=== PATIENT | female | born 1965 | race Caucasian/White ===

== ENCOUNTER → 2023-06-28 14:59 | Outpatient (BNVA) | payer BC, SELFPAY | PROVIDERS: PCP Family Medicine; Visit Provider Family Medicine | DX: M54.2 Cervicalgia (principal); G89.29 Other chronic pain; F41.1 Generalized anxiety disorder; E66.9 Obesity, unspecified; Z79.899 Other long term (current) drug therapy | CPT/HCPCS: 80053; 80061; 80307; 81003; 84439; 84443; 85025 ==

== ENCOUNTER → 2023-08-01 15:51 | Outpatient (BNVA) | payer BC, SELFPAY | PROVIDERS: PCP Family Medicine; Visit Provider Family Medicine | DX: K29.70 Gastritis, unspecified, without bleeding; Z79.899 Other long term (current) drug therapy | CPT/HCPCS: 80053; 84439; 84443; 85025 ==

== ENCOUNTER → 2024-03-31 15:47 | Outpatient (BNVA) | payer BC, MEDICAID, SELFPAY | PROVIDERS: PCP Family Medicine; Visit Provider Emergency Medicine | DX: R11.10 Vomiting, unspecified (principal) | CPT/HCPCS: 87400 ==

== ENCOUNTER 2024-04-04 06:00 | Outpatient (RCR) | payer MEDICARE, MEDICAID, SELFPAY ==
--- NOTE | 2024-04-27 11:47 | CSC.PASSE_ITS ---
[facility] [place] Information Reason for Admission: I feel guilty about past substance use, feel like I am letting family down Client also identifies needing housing. Chief Complaint: Clients identifies substance use, anxiety, and lack of stable housing as the main barriers to stability. Current Presentation: Speaks fast, appearing anxious with client swaying bath and forth, fidgety. History Past Diagnosis and Psychiatric History: Diagnoses Anxiety F41.9 Generalized anxiety disorder F41.1 Bipolar disorder F31.9 Methamphetamine use disorder, severe, in early remission F15.21 Childhood/Family History: Mom philip when client was 6 months old. She notes she felt like she was walking on eggshells to to interfamilial conflict between step father and mother. Client two siblings, one brother and one sister. Client does have continued contact with sister but does not speak to brother. Abuse/Neglect/Trauma: Verbal Abuse History Detail: Client also notes she moved in April and had to get rid of her pet, which she identifies as being very difficult. Client moved in with niece after losing housing in [place], [place] due to letting someone stay their without permission. Client noted the substance use intensified when she had moved in with her niece, causing more stress. Current Social/Environmental Situation Current Living Environment/Relationships: Client is currently living in a sober living facility at [facility]. Client endorses a positive living environment, noting she has been sober for the past 2 months. Client states the feeling of being trapped due to sharing bunkbeds with multiple people. Do you have any relationships that are supportive of your recovery? (e.g., family, friends): Yes What is your current living situation? (e.g., homeless, living with family): Yes (Living in [facility] Do you currently live where others drink alcohol and/or use: No Are you currently involved in relationships or situations that pose a threat to your safety?: No Are you currently involved in relationships or situations that could negatively affect your recovery?: No Have you ever had hobbies? How do you spend free time? (e.g., interests; activities; recreation)?: Yes (I like to go shopping, visit the tanning bed, enjoys gardening. 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 Employment/Support Comments: Client is currently on disability and draws approximately 1200 per month, 200 a month through [employer], and another 150 a month for utilities. How many days were you paid for working in the past 30 days?: 0 How much money did you receive from the following sources in the past 30 days? Employment (Net or ?take home? pay; include any ?under the table? money.): 0 Unemployment compensation: 0 Include food stamps, transportation money provided by an agency to go to and from treatment.): 0 Pensions, benefits, or Social Security (Include disability, pensions, halfway, ?s benefits, SSI, and worker?s compensation.): 1,200 Use Patient Rating Scale Use Interviewer Severity Rating Substance Use History Alcohol or Other Drug Used past 6 months Prior use? (lifetime) Route of Use Frequency (past 6 months) Duration (of use) Date of last use Alcohol Amphetamines (meth, ice, crank) yes Nasal Inssuflation 3 months prior Cocaine Heroin Opioid /Opiates (misuse or w/out prescription) Marijuana (cbd, dabs) yes Smoking several days ago Sedatives (Benzo, sleep meds) (misuse or w/out prescription) Hallucinogens Inhalants Over the Counter (Cough syrup, Diet) Nicotine (cigarettes, chew, vape) Other Relapse, Cont. Use Are you aware of your triggers to use alcohol and/or drugs: Yes Please check of any of the following which you know are triggers for you:: Difficulty with feelings, Chronic Pain and Mental Health Please Describe: Feels like chores and activities of daily living would be much easier if she had access to Methamphetamine . What do you typically do if you are triggered: Client indicates she has not successfully employed any healthy coping mechanisms. What does that look like: Client reports experiencing sobriety over the past year with only a few incidences of relapse. 7.What is the longest period of time that you have gone without using alcohol and/or other drugs: What helps you to not use drugs/alcohol, what doesn't help Readiness to Change Is your alcohol and/or other drug use affecting any of the following?: Relationships (Has strained relationship with children. ) Do you continue to use alcohol and/or other drugs despite having it affect you?: No What would help to support your recovery; recovery concerns: Housing stability, strong social supports. What are your potential barriers to your recovery: Difficulty adjusting to chronic pain. Have you received help for alcohol and/or drug problems in the past?: No How important is it for you to receive treatment for:: Drugs: Moderately Is anyone making you seek treatment or asking you to be in recovery?: No Assessment Summary Strengths, Current Resources, Barriers to Treatment: Strengths: Proud of her current stint of sobriety, proud she was able to begin going to sabianism and escape substance use. Current Resources: Local [facility]. Barriers to Treatment: Substance use, lack of community resources. Assessment Summary Dialogue: Dania is a 58 year old female whom presented to the Crisis Center for assistance with medications. Client reports a recent Inpatient NPU visit due to continued depression and anxiety. Dania does have a history of substance use, particularly methamphetamine. Client rationalizes the usage as a way to help cope with difficulties as a result of chronic pain. Client feels the Methamphetamine use allows her to help increase energy levels and accomplish tasks that the chronic pain inhibits her from doing. Client does maintain compliance with the medicat ions prescribed while in the NPU, although client expresses desire to simplify medications due to difficulty remembering to take them at the appropriate times. Client does report high efficacy with the medications and is currently maintaining sobriety for the past 3 months. She is currently residing at a sober living facility known as [facility]. Client does express desire to maintain housing stability noting her current residences contributes to her anxiety as a result of feeling confined. Client also expresses her renewed attendance with [facility] has been a large supporting factor to her current sobriety. Identified Treatment Goals Identified Treatment Goal(s): Community-based assistance, Physical health serv ices and Medication assistance Plan of Care Treatment Plan Goal:? Client will obtain psychosocial stability by obtaining housing stability and increased mental wellbeing. MICRO Objective: Client will obtain housing stability as evidenced by becoming permanently housed by June 26, 2024? Task a: Client will complete Section 8/ HUD applications. Task b: Client will create monthly budget Task c: Client will familiarize herself with [facility] food pantry. MICRO Objective 2: Client will better manage mental health symptoms as completing 6 months of sobriety Task a: Client will attend clinical assessment with [facility] services by 05/06/24 Task b: Client will utilize coping mechanisms utilizing the current safety plan Task c: Client will obtain medication planner/scheduler to assist in maintaining medication providers Task d: Client will utilize [facility] [place], as needed, in times of crisis Risks Date Date of last Risks: 04/27/24 Suicide Risk Assessment In the last 30 days have you... Little interest or pleasure in doing things: more than half the days (My shoulder has been hurting and I dont feel like doing anything) Feeling down, depressed, or hopeless: several days (A few days because I feel like I can't do anything) PHQ-2 Score: 3 Total (If greater than 3 please do full PHQ-9): Yes Trouble falling or staying asleep, or sleeping too much: nearly every day (I don't sleep well at all, 2-3 hours per night (due to shoulder injury pain)) Feeling tired or having little energy: nearly every day (Identifies lack of sleep as contributing factor) Poor appetite or overeating: more than half the days (Has gained 30 pounds since injury her shoulder.) Feeling bad about yourself - or that you are a failure or have let yourself or your family down: several days (Notes she is doing better since the NPU hospitalization) Trouble concentrating on things, such as reading the newspaper or watching television: not at all Moving or speaking so slowly that other people could have noticed. Or the opposite - being so fidgety or restless that you have been moving around a lot more than usual: more than half the days (I feel fidgety or talking fast) Thoughts that you would be better off or of hurting yourself in some way: not at all PHQ-9: Total score: 14 Have you had suicidal thoughts?: Not At All (None since NPU hospitalization) Do you ever wish you weren't alive anymore?: Not At All (She notes she didn't want to harm herself, just doesn't want to be in pain) Suicide Risk Score: 3 Patient score 3 or greater or had suicidal thoughts?: Yes Have you wished to be or not wake up?: No Have you had any thoughts of killing yourself?: No Have you been thinking about how you might do this?: No Have you had thoughts with some intent of acting on them?: No Do you have a plan? Do you intend to carry out this plan?: No Have you ever done, started to, or prepared to do anything?: Never Risk to Others Current or History of HI: Denies any homicidal thoughts, plans, intentions, or time frames Previous and/or current violence: No Previous and/or current threats (verbal/physical): No If both Yes, then complete full screening: No Other Self-Harm or Risk Taking Behaviors Other Risk Taking Behaviors:: High Risk Substance Use Protective Factors Protective Factors and Deterrents: Responsibility to family or others Final Disposition of Risk Screening Final Disposition: No Emergency response: Safety planning
== END 2024-05-01 23:59 | disposition home or self-care (01) ==
LOC: SPT 06:00
PROVIDERS: Visit Provider Family Medicine
DX: S46.812D Strain of other muscles, fascia and tendons at shoulder and upper arm level, left arm, subsequent encounter (principal); X58.XXXD Exposure to other specified factors, subsequent encounter
CPT/HCPCS: 3725F; 97161

== ENCOUNTER 2024-04-06 18:07 | Inpatient (IN) | payer MEDICARE, MEDICAID, SELFPAY ==
[2024-04-06 18:13] VITALS: BP 167/115; PULSE 113; RESP 16; TEMP 36.9; O2SAT 93; BMI 30.9
--- NOTE | 2024-04-06 18:28 | W.ED.PSYCHS ---
HPI - Psych General: Chief Complaint: Psychiatric Symptoms Stated Complaint: SI Time Seen by Provider: 04/06/24 18:12 Source: patient Mode of arrival: ambulatory Limitations: no limitations History of Present Illness: 58-year-old female who is here from a sober living house she states she has been having some depression some passing suicidal thoughts she has no specific plans patient states she just recently got [place] 2 weeks ago. She has no other complaints at this time. Associated symptoms: Reports depression Related Data Previous Rx's Medication Instructions Recorded duloxetine 30 mg capsule,delayed 30 mg PO BID #60 caps 08/01/23 release (Cymbalta) omeprazole 40 mg capsule,delayed 40 mg PO BID #56 caps 08/01/23 release aripiprazole 10 mg tablet (Abilify) 10 mg PO DAILY #30 tabs 08/28/23 hydroxyzine pamoate 100 mg capsule 100 mg PO QID PRN anxiety #240 caps 08/28/23 pregabalin 100 mg capsule (Lyrica) 100 mg PO BID #60 caps 08/28/23 wisjmveykwjjqzg-nqpbkjfsxkehkyt-EV 5 ml PO Q6H PRN cold symptoms #118 03/31/24 2 mg-30 mg-10 mg/5 mL oral syrup mL (Bromfed DM) ondansetron 4 mg disintegrating 4 mg PO Q6H PRN nausea and 03/31/24 tablet vomiting #12 tabs oseltamivir 75 mg capsule (Tamiflu) 75 mg PO BID 5 days #10 caps 03/31/24 clonazepam 0.5 mg tablet (Klonopin) 0.5 mg PO TID 30 days #90 tabs 04/03/24 gabapentin 800 mg tablet 800 mg PO TID #270 tabs 04/03/24 tramadol 50 mg tablet 50 mg PO Q8H PRN neck pain 30 days 04/03/24 #90 tabs Allergies Allergy/AdvReac Type Severity Reaction Status Date / Time No Known Allergies Allergy Unverified 03/31/24 15:23 Review of Systems Const: Denies: fever(s), chills, body aches or change in appetite ENMT: Denies: throat pain or dental pain Card: Denies: chest pain Resp: Denies: dyspnea GI: Denies: abdominal pain, nausea, vomiting or diarrhea Musc: Denies: neck pain or back pain Skin/Breast: Denies: rash Neuro: Denies: headache(s) Psych: Reports: depression PFSH ED PFSH: Medical History Tobacco use disorder Hx MRSA infection Bipolar disorder Chronic neck pain Insomnia Generalized anxiety disorder Anxiety Surgical History H/O neck surgery History of bladder surgery History of partial hysterectomy Family History Mother Colon cancer Hypertension Social History Smoking and tobacco/nicotine status: never used tobacco/nicotine Alcohol intake: never Substance/Drug Use: never Adopted: No service: No Current occupational exposures/hazards: No Current gender identity: Female Physical Exam Const: COMMON NORMALS: no acute distress, patient oriented x3 and healthy appearing HENMT: COMMON NORMALS: normocephalic and atraumatic HEAD & SCALP: normocephalic and atraumatic Eye: COMMON NORMALS: Equal, round and reactive pupils present and EOMs intact bilaterally PUPIL: Yes Equal, round and reactive pupils present Neck/C-Spine: COMMON NORMALS: full ROM and supple Chest: COMMONS NORMALS: normal inspection of the chest and normal palpation of entire chest wall Resp: COMMON NORMALS: normal respiratory effort, No retractions, No use of accessory muscles and clear to auscultation bilaterally AUSCULTATION: clear to auscultation bilaterally Cardio: COMMON NORMALS: regular rate, regular rhythm and No murmurs present (Cardio) RATE: regular rate RHYTHM: regular rhythm Extremity: COMMON NORMALS: normal to inspection and full ROM Neuro: COMMON NORMALS: patient oriented x3, moves all extremities and no focal motor deficits Psych: COMMON NORMALS: mental status grossly normal, Normal thought process present and cooperative MOOD & AFFECT: Yes depressed mood THOUGHT PROCESS: Normal thought process present Skin: COMMON NORMALS: no rashes or lesions noted and no wounds GENERAL SKIN EXAM: no rashes or lesions noted Course Vital Signs: Vital signs: Vital Signs Temperature 98.5 F 04/06/24 18:13 Pulse Rate 113 H 04/06/24 18:13 Respiratory Rate 16 04/06/24 18:13 Blood Pressure 167/115 04/06/24 18:13 Pulse Oximetry 93 04/06/24 18:13 Oxygen Delivery Me thod Room Air 04/06/24 18:13 MDM - Psych Medical Decision Making Patient presents here with depression she has had some passing suicidal thoughts no specific plan she is medically cleared I spoke to psychiatrist will admit. Medical Records I reviewed the patient's medical records. Lab Data I reviewed the patient's lab results. 04/06/24 18:50 04/06/24 18:50 Laboratory Results WBC 7.15 10^3/uL (3.29-11.43) 04/06/24 18:50 RBC 4.38 10^6/uL (3.85-5.65) 04/06/24 18:50 Hgb 12.80 g/dL (11.27-16.99) 04/06/24 18:50 Hct 38.8 % (36-47) 04/06/24 18:50 MCV 88.6 fl (85-98) 04/06/24 18:50 MCH 29.2 pg (27-33) 04/06/24 18:50 MCHC 33.0 g/dL (30-55) 04/06/24 18:50 RDW 14.6 % (12.1-15.1) 04/06/24 18:50 Plt Count 271 10^3/cmm (157-399) 04/06/24 18:50 MPV 8.9 fL (7.4-10.4) 04/06/24 18:50 Neut % (Auto) 69.1 % 04/06/24 18:50 Lymph % (Auto) 21.4 % 04/06/24 18:50 [place] % (Auto) 6.9 % 04/06/24 18:50 Eos % (Auto) 1.7 % 04/06/24 18:50 Baso % (Auto) 0.3 % 04/06/24 18:50 Neut # (Auto) 4.95 10^3/uL (1.8-7.7) 04/06/24 18:50 Lymph # (Auto) 1.5 10^3/uL (0.8-4.8) 04/06/24 18:50 [place] # (Auto) 0.5 10^3/uL (0.2-0.9) 04/06/24 18:50 Eos # (Auto) 0.1 10^3/uL (0.0-0.8) 04/06/24 18:50 Baso # (Auto) 0.0 10^3/uL (0.0-0.1) 04/06/24 18:50 Nucleated RBC % (auto) 0 % 04/06/24 18:50 Nucleated RBCs # 0.0 /100WBC 04/06/24 18:50 Sodium 135 mmol/L (136-145) L 04/06/24 18:50 Potassium 4.0 mmol/L (3.5-5.1) 04/06/24 18:50 Chloride 100 mmol/L (98-107) 04/06/24 18:50 Carbon Dioxide 24 mmol/L (22-29) 04/06/24 18:50 Anion Gap 15.0 (5-19) 04/06/24 18:50 BUN 20 mg/dL (8-23) 04/06/24 18:50 Creatinine 0.7 mg/dL (0.5-0.9) 04/06/24 18:50 GFR Calculation 85.4 mL/min (90-130) L 04/06/24 18:50 Glucose 166 mg/dL (65-115) H 04/06/24 18:50 Calculated Osmolality 286 mOsm/kg (285-295) 04/06/24 18:50 Calcium 9.1 mg/dL (8.5-10.5) 04/06/24 18:50 Total Bilirubin 0.2 mg/dL (0.15-1.2) 04/06/24 18:50 AST 11 U/L (0-32) 04/06/24 18:50 ALT 12 U/L (0-33) 04/06/24 18:50 Alkaline Phosphatase 58 U/L (35-105) 04/06/24 18:50 Total Protein 7.2 g/dL (6.6-8.7) 04/06/24 18:50 Albumin 4.2 g/dL (3.5-5.2) 04/06/24 18:50 Globulin 3.0 g/dL (1.3-4.6) 04/06/24 18:50 Salicylates < 0.3 mg/dL (3-10) L 04/06/24 18:50 Urine Opiates Screen Negative ng/mL (Negative) 04/06/24 18:59 Acetaminophen < 5.0 ug/mL (10-30) L 04/06/24 18:50 Ur Barbiturates Screen Negative ng/mL (Negative) 04/06/24 18:59 Ur Phencyclidine Scrn Negative ng/mL (Negative) 04/06/24 18:59 Ur Amphetamines Screen Negative ng/mL (Negative) 04/06/24 18:59 U Benzodiazepines Scrn Negative ng/mL (Negative) 04/06/24 18:59 Urine Cocaine Screen Negative ng/mL (Negative) 04/06/24 18:59 U Marijuana (THC) Screen Positive ng/mL (Negative) H 04/06/24 18:59 Ethyl Alcohol < 10 mg/dL (0-10) 04/06/24 18:50 No radiology studies performed this visit Discharge Plan Discharge Condition: Stable Prescriptions: No Action duloxetine [Cymbalta] 30 mg capsule,delayed release(DR/EC) 30 mg PO BID Qty: 60 1RF omeprazole 40 mg capsule,delayed release(DR/EC) 40 mg PO BID Qty: 56 0RF aripiprazole [Abilify] 10 mg tablet 10 mg PO DAILY Qty: 30 0RF pregabalin [Lyrica] 100 mg capsule 100 mg PO BID Qty: 60 0RF hydroxyzine pamoate 100 mg capsule 100 mg PO QID PRN (Reason: anxiety) Qty: 240 2RF foeqhuaahnqrvch-pqebvgbsl-MA [Bromfed DM] 2-30-10 mg/5 mL syrup 5 ml PO Q6H PRN (Reason: cold symptoms) Qty: 118 0RF ondansetron 4 mg tablet,disintegrating 4 mg PO Q6H PRN (Reason: nausea and vomiting) Qty: 12 0RF Rx Instructions: 340b please oseltamivir [Tamiflu] 75 mg capsule 75 mg PO BID 5 Days Qty: 10 0RF tramadol 50 mg tablet 50 mg PO Q8H PRN (Reason: neck pain) 30 Days Qty: 90 0RF gabapentin 800 mg tablet 800 mg PO TID Qty: 270 1RF clonazepam [Klonopin] 0.5 mg tablet 0.5 mg PO TID 30 Days Qty: 90 0RF Referrals: Vaisler,Valentin, MD [Primary Care Provider] - Coding Level of Care Code ED Computer Methods Analyst for Danielle Barrett
[2024-04-06 18:58] LABS: Basophils % 0.3 %; Eosinophils # 0.1 10^3/uL (0.0-0.8); Eosinophils % 1.7 %; Hematocrit 38.8 % (36-47); Lymphocytes # 1.5 10^3/uL (0.8-4.8); Lymphocytes % 21.4 %; Mean Corpuscular Hemoglobin 29.2 pg (27-33); Mean Corpuscular Volume 88.6 fl (85-98); Mean Platelet Volume 8.9 fL (7.4-10.4); Monocytes # 0.5 10^3/uL (0.2-0.9); Monocytes % 6.9 %; Neutrophils # 4.95 10^3/uL (1.8-7.7); Neutrophils % 69.1 %; Nucleated Red Blood Cells % 0 %; Platelet Count 271 10^3/cmm (157-399); Red Blood Count 4.38 10^6/uL (3.85-5.65); Red Cell Distribution Width 14.6 % (12.1-15.1); White Blood Count 7.15 10^3/uL (3.29-11.43)
[2024-04-06] MEDS: LORazepam 1 mg Tablet PO (19:13)
[2024-04-06 19:16] LABS: Alanine Aminotransferase 12 U/L (0-33); Albumin Level 4.2 g/dL (3.5-5.2); Alkaline Phosphatase 58 U/L (35-105); Aspartate Amino Transferase 11 U/L (0-32); Blood Urea Nitrogen 20 mg/dL (8-23); Calcium 9.1 mg/dL (8.5-10.5); Carbon Dioxide 24 mmol/L (22-29); Chloride 100 mmol/L (98-107); Creatinine Clr Calc Pharmacy 88.3444; Glomerular Filtration Rate 85.4 mL/min (90-130); Glucose 166 mg/dL (65-115); Osmolality Calculated 286 mOsm/kg (285-295); Salicylate < 0.3 mg/dL (3-10); Sodium 135 mmol/L (136-145); Total Bilirubin 0.2 mg/dL (0.15-1.2); Total Protein 7.2 g/dL (6.6-8.7)
[2024-04-06 19:17] LABS: Acetaminophen < 5.0 ug/mL (10-30); Alcohol Level < 10 mg/dL (0-10)
[2024-04-06 19:23] LABS: Amphetamines Screen Urine Negative (Negative); Barbiturates Screen Urine Negative (Negative); Benzodiazepines Screen Urine Negative (Negative); Cocaine Screen Urine Negative (Negative); Opiate Screen Urine Negative (Negative); PCP Screen Urine Negative (Negative); THC Screen Urine Positive (Negative)
[2024-04-06 20:39] VITALS: BP 122/86; PULSE 91; RESP 16; O2SAT 98
[2024-04-06 20:49] VITALS: BP 152/89; PULSE 101; RESP 18; TEMP 37.2; O2SAT 97
[2024-04-06 21:08] VITALS: BP 152/89; PULSE 101; RESP 18; TEMP 37.2; O2SAT 97
[2024-04-06] MEDS: acetaminophen 325 mg Tablet 650 MG PO (23:01)
[2024-04-06] MEDS: trazodone 50 mg Tablet PO (23:03)
[2024-04-07 06:00] VITALS: BP 115/70; PULSE 96; RESP 18; TEMP 36.6; O2SAT 95
[2024-04-07] MEDS: nicotine 21 mg Patch 1 PATCH TRANSDERMA (09:20)
[2024-04-07] MEDS: ondansetron 4 MG Tablet PO (09:22)
[2024-04-07] MEDS: acetaminophen 325 mg Tablet 650 MG PO ×2 (09:22→16:29)
[2024-04-07] MEDS: TRAMadol 50 mg Tablet PO ×2 (13:20→20:11)
[2024-04-07 14:00] VITALS: BP 123/83; PULSE 84; RESP 18; TEMP 37.2; O2SAT 97
[2024-04-07] MEDS: gabapentin 300 mg Capsule 600 MG PO ×2 (14:23→20:09)
[2024-04-07] MEDS: CLONazepam 0.5 mg Tablet PO ×2 (14:23→20:09)
--- NOTE | 2024-04-07 16:18 | P.NPUHP_ITS ---
Providers/Chief Complaint 2 Admitting Physician: Kale Antoine MD Primary Care Provider: Valentin Vargas MD Chief Complaint: SI HPI NPU History of Present Illness Dania Madrigal is a 58 year old female who presented to the emergency department with the following report: Chief Complaint: Psychiatric Symptoms Stated Complaint: SI Time Seen by Provider: 04/06/24 18:12 Source: patient Mode of arrival: ambulatory Limitations: no limitations History of Present Illness: 58-year-old female who is here from a sober living house she states she has been having some depression some passing suicidal thoughts she has no specific plans patient states she just recently got [place] 2 weeks ago. She has no other complaints at this time. Associated symptoms: Reports depression. She was admitted to the neuropsychiatric unit for definitive treatment of those issues. She is unknown to [facility] through inpatient or outpatient services but reports just being discharged from [place] recently and sent to a sober living facility in [facility] but that she is struggling there and presented to the emergency department reporting that she was having a tough time. She presents today reporting: Chief complaint Overwhelming pain and recent struggles with depression and anxiety. History of the present complaint The patient reports experiencing significant pain, which has become overwhelming and led to a recent hospital visit. The pain is associated with a past incident where the patient was washing the carpet on the basement stairs, potentially causing an injury to the arm. The patient has a history of a bulging disc removal and esophageal surgery, along with past experiences of sepsis and MRSA, which occurred in 2008. The current pain is described as being on the opposite side of the previous surgery and is exacerbated by physical activities. The patient has been struggling over the past year, particularly after losing their home when the patient's brother sold it. This event has contributed to a sense of loss and the need to find oneself again. The patient has a history of being in a psychiatric hospital, with the most recent stay being about 10 days ago. After leaving the hospital, the patient was sent to a sober living home, which was not suitable due to physical challenges related to arthritis in the knees and difficulties with the bed arrangements. The patient has a history of substance use, specifically methamphetamine and marijuana, which was shared with a niece. The patient reports quitting these substances about six months ago and has not been struggling with them since. The patient was placed in a sober living house as an option, but the physical setup was not conducive to their needs. The patient has been experiencing depression and anxiety, with a doctor in [place] prescribing 1 mg of clonazepam, which the patient found effective. The patient is currently on a lower dose of 0.25 mg and is considering an increase. The patient was also prescribed Latuda, with a refill given around the beginning of November, but reports that it was not effective and led to increased appetite and nighttime eating. The patient has been dealing with these mental health challenges more recently, particularly after their son went to the [employer] and their daughter moved with her for work, leaving the patient feeling lost and without purpose. The patient denies having issues with trauma, nightmares, flashbacks, or hearing voices. There are no current thoughts of self-harm or harm to others, and the patient does not feel paranoid or that people are out to get them. The patient reports having a fairly good mood since resuming medication. The patient has limited family support, with a sister being the primary contact, and mentions the passing of their mother about a year ago. Mental health history Has a history of depression and anxiety. Recently discharged from a psychiatric hospital about 10 days ago. Previously struggled with methamphetamine and cannabis use, which was ceased approximately six months ago. Was prescribed 1 mg of clonazepam by a doctor in [place], which was effective, and is currently on 0.25 mg. Also prescribed Latuda, but it was not effective and led to increased appetite. No current thoughts of self-harm or harm to others. No history of trauma, nightmares, flashbacks, or paranoia. No auditory or visual hallucinations reported. Social history Lost home due to brother selling it, previously lived in a nice neighborhood with a 5-bedroom home. Son is in the [employer], currently stationed in [place]. Daughter's works for [employer] in [place]. 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 Has a sister with whom there is communication, but no other family support mentioned. Mother approximately a year ago. Previously used meth and weed with niece, quit about six months ago. No current alcohol or tobacco use mentioned. Struggles with arthritis in knees, affecting mobility. Meds NPU Home Medications ?Medication ?Instructions ?Recorded ?Confirmed ?Last Taken ?Type duloxetine 30 mg capsule,delayed 30 mg PO BID #60 caps 08/01/23 03/31/24 Unknown Rx release (Cymbalta) omeprazole 40 mg capsule,delayed 40 mg PO BID #56 caps 08/01/23 03/31/24 Unknown Rx release aripiprazole 10 mg tablet (Abilify) 10 mg PO DAILY #30 tabs 08/28/23 03/31/24 Unknown Rx hydroxyzine pamoate 100 mg capsule 100 mg PO QID PRN a nxiety #240 caps 08/28/23 03/31/24 Unknown Rx pregabalin 100 mg capsule (Lyrica) 100 mg PO BID #60 c aps 08/28/23 03/31/24 Unknown Rx kgjdcxngifevdys-topjtlwyrbihide-IK 5 ml PO Q6H PRN col d symptoms #118 03/31/24 03/31/24 Unknown Rx 2 mg-30 mg-10 mg/5 mL oral syrup mL (Bromfed DM) ondansetron 4 mg disintegrating 4 mg PO Q6H PRN nausea and 03/31/24 03/31/24 Unknown Rx tablet vomiting #12 tabs oseltamivir 75 mg capsule (Tamiflu) 75 mg PO BID 5 day s #10 caps 03/31/24 03/31/24 Unknown Rx clonazepam 0.5 mg tablet (Klonopin) 0.5 mg PO TID 30 d ays #90 tabs 04/03/24 Unknown Rx gabapentin 800 mg tablet 800 mg PO TID #270 tabs 03/06 03/28 Unknown Rx tramadol 50 mg tablet 50 mg PO Q8H PRN neck pain 3 0 days 04/03/24 Unknown Rx #90 tabs duloxetine 30 mg capsule,delayed mg PO 04/06/24 Unknown History release clonazepam 0.5 mg tablet 0.5 mg PO TID 04/07/2404/07 Unknown History tramadol 50 mg tablet 50 mg PO Q8H PRN Pain, Sever e 04/07/24 04/07/24 Unknown History Allergies Allergy/AdvReac Type Severity Reaction Status Date / Time No Known Allergies Allergy Unverified 03/31/24 15:23 PFSH NPU 2 PFSH: Medical History Tobacco use disorder Hx MRSA infection Bipolar disorder Chronic neck pain Insomnia Generalized anxiety disorder Anxiety Surgical History H/O neck surgery History of bladder surgery History of partial hysterectomy Family History Mother Colon cancer Hypertension Social History Smoking and tobacco/nicotine status: never used tobacco/nicotine Alcohol intake: never Substance/Drug Use: never Adopted: No service: No Current occupational exposures/hazards: No Current gender identity: Female Mental Status Exam 2 MSE Comments: This is an obese, white female, looking older than her stated age in hospital scrubs, with adequate grooming and eye contact. No abnormal movements except for mild psychomotor agitation. Cooperative with exam in mild distress. Speech was increased rate and normal volume. Mood described as depressed and anxious; affect congruent . Thought process, organized. Thought content: patient denied any suicidal or homicidal ideation, there were no delusions reported or noted, patient denied any auditory or visual hallucinations. No current thoughts to hurt or kill self or others. Patient has been struggling with anxiety and depression recently. Reports increased appetite and getting up to eat all night long, possibly due to medication. Stressors include loss of home, family members moving away, and physical pain. Mood has been fairly good since getting back on medication. Attention, concentration, and memory appeared intact, but none were formally tested. Alert and oriented times three. Insight and judgment are limited. Impulse control is limited. Vitals/I&O/Wt Last Vital Signs Temp 98.9 F 04/07/24 14:00 Pulse 84 04/07/24 14:00 Resp 18 04/07/24 14:00 BP 123/83 04/07/24 14:00 Pulse Ox 97 04/07/24 14:00 O2 Del Method Room Air 04/07/24 14:00 Weight last 48 hrs Weight 81.647 kg Data NPU 04/06/24 18:50 04/06/24 18:50 A&P Assessment and plan (1) Anxiety: (2) Generalized anxiety disorder: (3) Bipolar disorder: (4) Methamphetamine use disorder, severe, in early remission: Plan This is a 58-year-old female, who presents a couple weeks after her last inpatient hospitalization reporting that she is not doing well at the facility she was discharged to, who is here on a 96-hour hold. Depression and anxiety are present, with recent exacerbation due to life changes and stressors. There is a history of substance use, specifically methamphetamine and cannabis, which the patient reports having quit approximately six months ago. The patient has been on medication management, including clonazepam and Latuda, with some challenges in efficacy and side effects. No current suicidal ideation or homicidal ideation is reported. There is no evidence of psychosis, such as hallucinations or paranoia. The patient has a limited support system, with some family contact. 1. Continue current medication. Will consider making some medication changes 2. Encourage individual, group, and milieu therapy. 3. Continue q-15-minute checks for safety. 4. Recommend sober living treatment at the highest level of care to which the patient is willing to commit. 5. Get collateral information from significant others in outpatient team PDMP PDMP Reviewed: Not Reviewed Involuntary Hold Information 2 96 Hour Hold: 96 Hour Involuntary Admission: No Attestations NPU 2 Medical Necessity Statement*: Inpatient hospitalization is medically necessary and the clinically appropriate intervention, at this time. We will monitor medications and make changes as indicated. Patient will be in the hospital for over two midnights. Likely length of stay is three to five days. Coding Level of Care Code Acute Code for [facility] Fw Diagnoses Anxiety F41.9 Generalized anxiety disorder F41.1 Bipolar disorder F31.9 Methamphetamine use disorder, severe, in early remission F15.21
[2024-04-07] MEDS: promethazine 25 mg Tablet 12.5 MG PO (16:30)
[2024-04-07] MEDS: mirtazapine 30 mg Tablet PO (20:09)
[2024-04-07 20:21] VITALS: BP 113/78; PULSE 90; RESP 20; TEMP 36.8; O2SAT 98
[2024-04-08] MEDS: acetaminophen 325 mg Tablet 650 MG PO ×3 (01:45→19:43)
[2024-04-08 06:00] VITALS: BP 122/83; PULSE 89; RESP 14; TEMP 36.8; O2SAT 98
[2024-04-08] MEDS: CLONazepam 0.5 mg Tablet PO ×3 (09:01→20:39)
[2024-04-08] MEDS: gabapentin 300 mg Capsule 600 MG PO ×3 (09:02→20:39)
[2024-04-08] MEDS: promethazine 25 mg Tablet 12.5 MG PO ×2 (09:11→20:44)
[2024-04-08] MEDS: nicotine 21 mg Patch 1 PATCH TRANSDERMA (09:11)
[2024-04-08] MEDS: TRAMadol 50 mg Tablet PO ×3 (09:17→21:59)
[2024-04-08 14:00] VITALS: BP 125/82; PULSE 89; RESP 16; TEMP 37.2; O2SAT 97
[2024-04-08] MEDS: fluoxetine 20 mg Capsule PO (17:34)
[2024-04-08] MEDS: lamoTRIgine 25 mg Tablet PO (17:34)
--- NOTE | 2024-04-08 17:34 | P.NPUPN_ITS ---
Subjective NPU 2 Subjective: Patient presented today reporting that things were going okay. She reported that she had not really been on some basic antidepressants in the past and we discussed the risks, benefits and alternatives of initiating Prozac 20 mg p.o. daily as well as discussing mood stabilization and Lamictal starting at 25 mg p.o. daily and discussing the risk for Olson-Rohan syndrome and she understood and agreed to proceed as is documented in this note. She denied any side effects to her medications. Mental Status Exam 2 MSE Comments: This is an obese, white female, looking older than her stated age in hospital scrubs, with adequate grooming and eye contact. No abnormal movements except for mild psychomotor agitation. Cooperative with exam in mild distress. Speech was increased rate and normal volume. Mood described as depressed and anxious; affect congruent . Thought process, organized. Thought content: patient denied any suicidal or homicidal ideation, there were no delusions reported or noted, patient denied any auditory or visual hallucinations. No current thoughts to hurt or kill self or others. Patient has been struggling with anxiety and depression recently. Reports increased appetite and getting up to eat all night long, possibly due to medication. Stressors include loss of home, family members moving away, and physical pain. Mood has been fairly good since getting back on medication. Attention, concentration, and memory appeared intact, but none were formally tested. Alert and oriented times three. Insight and judgment are limited. Impulse control is limited. Vitals/I&O/Wt Last Vital Signs Temp 98.9 F 04/08/24 14:00 Pulse 89 04/08/24 14:00 Resp 16 04/08/24 14:00 BP 125/82 04/08/24 14:00 Pulse Ox 97 04/08/24 14:00 O2 Del Method Room Air 04/08/24 14:00 Data NPU 04/06/24 18:50 04/06/24 18:50 A&P Assessment and plan (1) Anxiety: (2) Generalized anxiety disorder: (3) Bipolar disorder: (4) Methamphetamine use disorder, severe, in early remission: Plan This is a 58-year-old female, who presents a couple weeks after her last inpatient hospitalization reporting that she is not doing well at the facility she was discharged to, who is here on a 96-hour hold. Depression and anxiety are present, with recent exacerbation due to life changes and stressors. There is a history of substance use, specifically methamphetamine and cannabis, which the patient reports having quit approximately six months ago. The patient has been on medication management, including clonazepam and Latuda, with some challenges in efficacy and side effects. No current suicidal ideation or homicidal ideation is reported. There is no evidence of psychosis, such as hallucinations or paranoia. The patient has a limited support system, with some family contact. 1. Continue current medication. Will consider making some medication changes. Initiate Prozac 20 mg p.o. daily and Lamictal 25 mg p.o. daily and titrate to effect. 2. Encourage individual, group, and milieu therapy. 3. Continue q-15-minute checks for safety. 4. Recommend sober living treatment at the highest level of care to which the patient is willing to commit. 5. Get collateral information from significant others in outpatient team PDMP PDMP Reviewed: Not Reviewed Involuntary Hold Information 2 96 Hour Hold: 96 Hour Involuntary Admission: No Attestations NPU 2 Medical Necessity Statement*: Inpatient hospitalization is medically necessary and the clinically appropriate intervention, at this time. We will monitor medications and make changes as indicated. Likely length of stay is 2-4 days. Coding Level of Care Code Acute Code for [facility] Fwd Diagnoses Anxiety F41.9 Generalized anxiety disorder F41.1 Bipolar disorder F31.9 Methamphetamine use disorder, severe, in early remission F15.21
--- NOTE | 2024-04-08 17:40 | PC.NURSE ---
NEW ORDERS RECEIVED FROM DR. PEÑA TO START LAMICTAL 25MG PO DAILY AND PROZAC 20 MG PO DAILY WITH FIRST DOSES TO BE GIVEN NOW AND THEN DAILY. ORDERS PLACED AND PT EDUCATED ON ORDERS, VERBALIZED UNDERSTANDING.
[2024-04-08 20:32] VITALS: BP 148/90; PULSE 102; RESP 17; TEMP 36.4; O2SAT 97
[2024-04-08] MEDS: mirtazapine 30 mg Tablet PO (20:39)
[2024-04-09] MEDS: acetaminophen 325 mg Tablet 650 MG PO (03:51)
[2024-04-09 06:00] VITALS: BP 148/88; PULSE 109; RESP 18; O2SAT 96
[2024-04-09] MEDS: CLONazepam 0.5 mg Tablet PO ×2 (08:35→14:42)
[2024-04-09] MEDS: TRAMadol 50 mg Tablet PO ×2 (08:52→16:48)
[2024-04-09] MEDS: fluoxetine 20 mg Capsule PO (08:52)
[2024-04-09] MEDS: lamoTRIgine 25 mg Tablet PO (08:53)
[2024-04-09] MEDS: nicotine 21 mg Patch 1 PATCH TRANSDERMA (08:53)
[2024-04-09] MEDS: promethazine 25 mg Tablet 12.5 MG PO (08:53)
[2024-04-09] MEDS: gabapentin 300 mg Capsule 600 MG PO ×2 (08:53→14:43)
[2024-04-09 14:00] VITALS: BP 139/97; PULSE 87; RESP 16; TEMP 36.8; O2SAT 97
[2024-04-09] MEDS: ibuprofen 600 mg Tablet PO (14:42)
--- NOTE | 2024-04-09 14:45 | DCPLANNER ---
Imm was given to pt and rights explained and copy placed in file.
--- NOTE | 2024-04-09 16:22 | P.NPUDS_ITS ---
Diagnoses at Discharge Discharge Diagnosis (1) Anxiety: Status: Acute (2) Generalized anxiety disorder: Status: Acute (3) Bipolar disorder: Status: Acute (4) Methamphetamine use disorder, severe, in early remission: Status: Acute Reason for Visit Reason for Visit: SI Involuntary Hold Information 96 Hour Hold: 96 Hour Involuntary Admission: No Mental Status Exam 2 MSE Comments: This is an obese, white female, looking older than her stated age in hospital scrubs, with adequate grooming and eye contact. No abnormal movements except for mild psychomotor agitation. Cooperative with exam in mild distress. Speech was increased rate and normal volume. Mood described as depressed and anxious; affect congruent . Thought process, organized. Thought content: patient denied any suicidal or homicidal ideation, there were no delusions reported or noted, patient denied any auditory or visual hallucinations. No current thoughts to hurt or kill self or others. Patient has been struggling with anxiety and depression recently. Reports increased appetite and getting up to eat all night long, possibly due to medication. Stressors include loss of home, family members moving away, and physical pain. Mood has been fairly good since getting back on medication. Attention, concentration, and memory appeared intact, but none were formally tested. Alert and oriented times three. Insight and judgment are limited. Impulse control is limited. Discharge Data Studies Completed and Pending: Laboratory Results WBC 7.15 10^3/uL (3.2 9-11.43) 04/06/24 18:50 RBC 4.38 10^6/uL (3.8 5-5.65) 04/06/24 18:50 Hgb 12.80 g/dL (11.27 -16.99) 04/06/24 18:50 Hct 38.8 % (36-47) 04/06/24 18:50 MCV 88.6 fl (85-98) 04/06/24 18:50 MCH 29.2 pg (27-33) 04/06/24 18:50 MCHC 33.0 g/dL (30-55) 04/06/24 18:50 RDW 14.6 % (12.1-15.1 ) 04/06/24 18:50 Plt Count 271 10^3/cmm (157 -399) 04/06/24 18:50 MPV 8.9 fL (7.4-10.4) 04/06/24 18:50 Neut % (Auto) 69.1 % 04/06/24 18:50 Lymph % (Auto) 21.4 % 04/06/24 18:50 [facility] % (Auto) 6.9 % 04/06/24 18:50 Eos % (Auto) 1.7 % 04/06/24 18:50 Baso % (Auto) 0.3 % 04/06/24 18:50 Neut # (Auto) 4.95 10^3/uL (1.8 -7.7) 04/06/24 18:50 Lymph # (Auto) 1.5 10^3/uL (0.8- 4.8) 04/06/24 18:50 [facility] # (Auto) 0.5 10^3/uL (0.2- 0.9) 04/06/24 18:50 Eos # (Auto) 0.1 10^3/uL (0.0- 0.8) 04/06/24 18:50 Baso # (Auto) 0.0 10^3/uL (0.0- 0.1) 04/06/24 18:50 Nucleated RBC % (a uto) 0 % 04/06/24 18:50 Nucleated RBCs # 0.0 /100WBC 04/06/24 18:50 Sodium 135 mmol/L (136-1 45) L 04/06/24 18:50 Potassium 4.0 mmol/L (3.5-5 .1) 04/06/24 18:50 Chloride 100 mmol/L (98-10 7) 04/06/24 18:50 Carbon Dioxide 24 mmol/L (22-29) 04/06/24 18:50 Anion Gap 15.0 (5-19) 04/06/24 18:50 BUN 20 mg/dL (8-23) 04/06/24 18:50 Creatinine 0.7 mg/dL (0.5-0. 9) 04/06/24 18:50 GFR Calculation 85.4 mL/min (90-1 30) L 04/06/24 18:50 Glucose 166 mg/dL (65-115 ) H 04/06/24 18:50 Calculated Osmolal ity 286 mOsm/kg (285- 295) 04/06/24 18:50 Calcium 9.1 mg/dL (8.5-10 .5) 04/06/24 18:50 Total Bilirubin 0.2 mg/dL (0.15-1 .2) 04/06/24 18:50 AST 11 U/L (0-32) 04/06/24 18:50 ALT 12 U/L (0-33) 04/06/24 18:50 Alkaline Phosphata se 58 U/L (35-105) 04/06/24 18:50 Total Protein 7.2 g/dL (6.6-8.7 ) 04/06/24 18:50 Albumin 4.2 g/dL (3.5-5.2 ) 04/06/24 18:50 Globulin 3.0 g/dL (1.3-4.6 ) 04/06/24 18:50 Salicylates < 0.3 mg/dL (3-10 ) L 04/06/24 18:50 Urine Opiates Scre en Negative ng/mL (N egative) 04/06/24 18:59 Acetaminophen < 5.0 ug/mL (10-3 0) L 04/06/24 18:50 Ur Barbiturates Sc reen Negative ng/mL (N egative) 04/06/24 18:59 Ur Phencyclidine S crn Negative ng/mL (N egative) 04/06/24 18:59 Ur Amphetamines Sc reen Negative ng/mL (N egative) 04/06/24 18:59 U Benzodiazepines Scrn Negative ng/mL (N egative) 04/06/24 18:59 Urine Cocaine Scre en Negative ng/mL (N egative) 04/06/24 18:59 U Marijuana (THC) Screen Positive ng/mL (N egative) H 04/06/24 18:59 Ethyl Alcohol < 10 mg/dL (0-10) 04/06/24 18:50 Vitals: Last Vital Signs Temp 98.3 F 04/09/24 14:00 Pulse 87 04/09/24 14:00 Resp 16 04/09/24 14:00 BP 139/97 04/09/24 14:00 Pulse Ox 97 04/09/24 14:00 O2 Del Method Room Air 04/09/24 14:00 Discharge Plan Discharge Patient Disposition: Admitted As Inpatient Condition: Stable Prescriptions: New gabapentin 600 mg tablet 600 mg PO TID 30 Days Qty: 90 1RF lamotrigine 25 mg Tablet 25 mg PO DAILY 19 Days Qty: 40 0RF Rx Instructions: 1 tab for 5 days, then 2 tabs for 1 week, then 3 tabs for 1 week then start 100 mg tablet mirtazapine 30 mg Tablet 30 mg PO BEDTIME 30 Days Qty: 30 1RF fluoxetine 20 mg Capsule 20 mg PO DAILY 30 Days Qty: 30 1RF lamotrigine [Lamictal] 100 mg tablet 100 mg PO DAILY 30 Days Qty: 30 1RF Rx Instructions: Began in 19 days after 25 mg titration complete Continued hydroxyzine pamoate 100 mg capsule 100 mg PO QID PRN (Reason: anxiety) Qty: 240 2RF Discontinued duloxetine [Cymbalta] 30 mg capsule,delayed release(DR/EC) 30 mg PO BID Qty: 60 1RF aripiprazole [Abilify] 10 mg tablet 10 mg PO DAILY Qty: 30 0RF gabapentin 800 mg tablet 800 mg PO TID Qty: 270 1RF clonazepam 0.5 mg tablet 0.5 mg PO TID No Action omeprazole 40 mg capsule,delayed release(DR/EC) 40 mg PO BID Qty: 56 0RF pregabalin [Lyrica] 100 mg capsule 100 mg PO BID Qty: 60 0RF ondansetron 4 mg tablet,disintegrating 4 mg PO Q6H PRN (Reason: nausea and vomiting) Qty: 12 0RF Rx Instructions: 340b please oseltamivir [Tamiflu] 75 mg capsule 75 mg PO BID 5 Days Qty: 10 0RF tramadol 50 mg tablet 50 mg PO Q8H PRN (Reason: neck pain) 30 Days Qty: 90 0RF Discharge Orders: Discharge Order (Routine); Ordered 04/09/24 Ordered By: Kale Antoine Referrals: [facility] [Outside] Valentin Vargas MD [Primary Care Provider] - 04/10/24 8:00 am (Follow up. ) Discharge Diet: Regular Discharge Activity: Resume usual activity Discharge Attestations NPU Time Spent in Discharge Care*: less than 30 min Specific Discharge Activities: Specific discharge activities: educating patient, discussing with case consultant/social workers/dc planners, documenting/other paperwork and evaluating patient/reviewing data Coding Level of Care Code Acute Code for [facility] Fwd Diagnoses Anxiety F41.9 Generalized anxiety disorder F41.1 Bipolar disorder F31.9 Methamphetamine use disorder, severe, in early remission F15.21
[2024-04-09 16:26] VITALS: BP 139/97; PULSE 87; RESP 16; TEMP 36.8; O2SAT 97
== END 2024-04-09 17:38 | disposition home or self-care (01) | DRG 885 ==
LOC: ER 20:17 → NP 20:40
PROVIDERS: Admitting Provider Psychiatry & Neurology Psychiatry; Emergency Provider Emergency Medicine; PCP Family Medicine; Visit Provider Psychiatry & Neurology Psychiatry
DX: F31.9 Bipolar disorder, unspecified (principal); R45.851 Suicidal ideations; F41.1 Generalized anxiety disorder; F15.21 Other stimulant dependence, in remission; Z86.14 Personal history of Methicillin resistant Staphylococcus aureus infection; G89.29 Other chronic pain; M54.2 Cervicalgia; G47.00 Insomnia, unspecified; E66.9 Obesity, unspecified; Z68.30 Body mass index [BMI] 30.0-30.9, adult
CPT/HCPCS: 36415; 80053; 80306; 80307; 85025; 97150; 97165; 99285; Q0162; Q0169

== ENCOUNTER 2024-04-10 09:01 | Outpatient (CLI) | payer MEDICARE, MEDICAID, SELFPAY ==
--- NOTE | 2024-04-10 09:05 | XR_ITS ---
WS: [id number] Left shoulder, 3 views, 04/10/2024 Clinical Data: L shoulder pain Comparison: None. Findings: No fractures or dislocations are seen. The AC joint is normal. The adjacent left clavicle, left scapula and ribs are normal. The soft tissues are unremarkable. There is a posterior cervical fusion. XR/XR shoulder LT min 2V* [id number] Impression: Negative left shoulder.
== END 2024-04-10 09:02 | disposition home or self-care (01) ==
LOC: RAD 09:03
PROVIDERS: PCP Family Medicine; Visit Provider Family Medicine
DX: S46.812A Strain of other muscles, fascia and tendons at shoulder and upper arm level, left arm, initial encounter (principal); Z98.1 Arthrodesis status; X58.XXXA Exposure to other specified factors, initial encounter
CPT/HCPCS: 73030

== ENCOUNTER 2024-05-02 06:30 | Outpatient (RCR) | payer MEDICARE, MEDICAID, SELFPAY | END 2024-06-01 23:59 | disposition home or self-care (01) | LOC: SPT 06:30 | PROVIDERS: Visit Provider Family Medicine | DX: S46.812D Strain of other muscles, fascia and tendons at shoulder and upper arm level, left arm, subsequent encounter (principal); X58.XXXD Exposure to other specified factors, subsequent encounter | CPT/HCPCS: 97110 ==

== ENCOUNTER → 2024-06-08 13:03 | Outpatient (BNVA) | payer MEDICARE, MEDICAID, SELFPAY | PROVIDERS: Family Provider Family Medicine; PCP Family Medicine; Visit Provider Orthopaedic Surgery | DX: S46.812A Strain of other muscles, fascia and tendons at shoulder and upper arm level, left arm, initial encounter (principal); X58.XXXA Exposure to other specified factors, initial encounter | CPT/HCPCS: 99204 ==

== ENCOUNTER → 2024-06-24 09:28 | Outpatient (BNVA) | payer OTHER, SELFPAY | PROVIDERS: Family Provider Family Medicine; PCP Family Medicine; Visit Provider Nurse Practitioner | DX: F31.81 Bipolar II disorder (principal); F41.1 Generalized anxiety disorder | CPT/HCPCS: 80061; 83036 ==

== ENCOUNTER 2024-07-04 21:57 | Emergency (ER) | payer MEDICARE, MEDICAID, SELFPAY ==
[2024-06-30 10:00] VITALS: BP 126/95; BMI 36.1
[2024-07-04 22:02] VITALS: BP 133/92; PULSE 89; RESP 18; TEMP 36.3; O2SAT 96; BMI 34.3
[2024-07-04 22:40] LABS: Basophils % 0.5 %; Eosinophils # 0.1 10^3/uL (0.0-0.8); Eosinophils % 1.5 %; Hematocrit 38.7 % (36-47); Lymphocytes # 2.2 10^3/uL (0.8-4.8); Lymphocytes % 38.1 %; Mean Corpuscular HGB Conc 33.6 g/dL (30-55); Mean Corpuscular Hemoglobin 29.7 pg (27-33); Mean Corpuscular Volume 88.6 fl (85-98); Mean Platelet Volume 9.9 fL (7.4-10.4); Monocytes # 0.4 10^3/uL (0.2-0.9); Monocytes % 7.5 %; Neutrophils # 3.05 10^3/uL (1.8-7.7); Neutrophils % 52.2 %; Nucleated Red Blood Cells % 0 %; Platelet Count 223 10^3/cmm (157-399); Red Blood Count 4.37 10^6/uL (3.85-5.65); Red Cell Distribution Width 12.4 % (12.1-15.1); White Blood Count 5.85 10^3/uL (3.29-11.43)
[2024-07-04 23:04] LABS: Alanine Aminotransferase 8 U/L (0-33); Albumin Level 3.8 g/dL (3.5-5.2); Alkaline Phosphatase 63 U/L (35-105); Blood Urea Nitrogen 16 mg/dL (8-23); Calcium 8.8 mg/dL (8.5-10.5); Carbon Dioxide 24 mmol/L (22-29); Chloride 106 mmol/L (98-107); Creatinine Clr Calc Pharmacy 93.2399; Globulin 3.1 g/dL (1.3-4.6); Glomerular Filtration Rate 85.4 mL/min (90-130); Glucose 124 mg/dL (65-115); Osmolality Calculated 295 mOsm/kg (285-295); Sodium 141 mmol/L (136-145); Total Bilirubin 0.2 mg/dL (0.15-1.2); Total Protein 6.9 g/dL (6.6-8.7)
[2024-07-04 23:05] LABS: Acetaminophen < 5.0 ug/mL (10-30); Alcohol Level < 10 mg/dL (0-10); Anion Gap 14.9 (5-19); Aspartate Amino Transferase 11 U/L (0-32); Potassium 3.9 mmol/L (3.5-5.1); Salicylate < 0.3 mg/dL (3-10)
[2024-07-04 23:43] LABS: Influenza A NEGATIVE (Negative); Influenza B NEGATIVE (Negative); Respiratory Syncytial Virus Ce NEGATIVE (Negative); SARS-CoV-2 PCR NEGATIVE (Negative)
[2024-07-05] MEDS: CLONazepam 0.5 mg Tablet PO ×2 (00:50→09:19)
--- NOTE | 2024-07-05 01:03 | W.ED.PSYCHS ---
HPI - Psych General: Chief Complaint: Psychiatric Symptoms Stated Complaint: N/V Nerves are bad Time Seen by Provider: 07/04/24 22:25 Source: patient Mode of arrival: EMS Limitations: no limitations History of Present Illness: 58yo female presents via EMS for thoughts of self-harm. Patient reports that she has an impending surgery coming and it is making her feel anxious and depressed. Patient states that she has been having thoughts of self-harm for several days now. She reports she does not have a plan, but does not want to hurt herself. Patient reports that she has never been evaluated for suicidal ideation previously. Patient denies having any weapons in the home. Associated symptoms: Reports depression and suicidal ideation Related Data Previous Rx's ?Medication ?Instructions ?Recorded omeprazole 40 mg capsule,delayed 40 mg PO BID #56 caps 08/01/23 release ondansetron 4 mg disintegrating 4 mg PO Q6H PRN nausea and 03/31/24 tablet vomiting #12 tabs gabapentin 600 mg tablet 600 mg PO TID 30 days #90 tabs 04/09/24 mirtazapine 30 mg tablet 30 mg PO BEDTIME 30 days #30 tabs 04/09/24 acetaminophen 650 mg 650 mg PO Q12H PRN pain #60 tabs 05/22/24 tablet,extended release (Tylenol Arthritis Pain) cyclobenzaprine 10 mg tablet 10 mg PO TID PRN muscle spasm #21 05/22/24 tabs fluoxetine 20 mg capsule 20 mg PO DAILY 30 days #30 caps 05/29/24 hydroxyzine HCl 50 mg tablet 50 mg PO TID PRN anxiety #90 tabs 05/29/24 lamotrigine 25 mg tablet (Lamictal) 25 mg PO .COMPLEX 14 days #42 tabs 05/29/24 mirtazapine 30 mg tablet (Remeron) 30 mg PO .HS #30 tabs 05/29/24 clonazepam 0.5 mg tablet 0.5 mg PO TID #90 tabs 06/08/24 pregabalin 100 mg capsule (Lyrica) 100 mg PO BID #60 caps 06/08/24 tramadol 50 mg tablet 50 mg PO Q8H PRN neck pain 30 days 06/08/24 #90 tabs Allergies Allergy/AdvReac Type Severity Reaction Status Date / Time No Known Allergies Allergy Verified 06/24/24 09:50 Review of Systems Const: Denies: fever(s), chills or body aches Card: Denies: chest pain Resp: Denies: dyspnea Psych: Reports: anxiety, depression and suicidal ideation PFS ED PFSH: Medical History Cannabis abuse Bipolar 2 disorder Vapes nicotine containing substance Psychiatric care Tobacco use disorder Hx MRSA infection Bipolar disorder Chronic neck pain Insomnia Generalized anxiety disorder Anxiety Surgical History H/O neck surgery History of bladder surgery History of partial hysterectomy Family History Mother Colon cancer Hypertension Social History (Updated 06/24/24 @ 09:54 by Yeni Alfaro LPN) Smoking and tobacco/nicotine status: current every day tobacco/nicotine user cigarettes Packs smoked per day: 0.5 Years cigarettes smoked: 40 Alcohol intake: never Substance/Drug Use: never Adopted: No Caregiver/support person: No Lives independently: Yes Household members: other Details: lives with 7 other people ([facility]) Housing: House Marital status: Number of children: 2 Number of grandchildren: 2 Highest education level completed: Some College, No Degree service: No Current occupational status: disabled Current occupational exposures/hazards: No Pets and animals: No Leisure activites: other Sexually active: No Do you think of yourself as: Straight/Heterosexual Current gender identity: Female Earnestine/Scientologist: Yazdanism Special earnestine needs: No Agree to transfusion: Yes Female Reproductive History: Para: 2 Physical Exam Const: COMMON NORMALS: no acute distress, average body habitus, patient oriented x3, healthy appearing and alert ORIENTATION/CONSCIOUSNESS: Yes awake OTHER: Patient is laying reclined on the stretcher no acute distress. She is able to give history with no difficulty. She is interactive with exam appropriately. HENMT: COMMON NORMALS: normocephalic and atraumatic HEAD & SCALP: normocephalic and atraumatic Chest: CHEST: Yes Symmetrical chest wall rise Resp: COMMON NORMALS: normal respiratory effort EFFORT & INSPECTION: Yes able to speak in complete sentences Extremity: COMMON NORMALS: full ROM NARRATIVE EXTREMITY EXAM: MAEW Neuro: COMMON NORMALS: patient oriented x3 SENSORIUM/ORIENTATION: Yes alert Psych: COMMON NORMALS: cooperative ATTITUDE: Yes calm THOUGHT CONTENT: Yes Suicidality present Course Vital Signs: Vital signs: Vital Signs Temperature 97.3 F L 07/04/24 22:02 Pulse Rate 89 07/04/24 22:02 Respiratory Rate 18 07/04/24 22:02 Blood Pressure 133/92 07/04/24 22:02 Pulse Oximetry 96 07/04/24 22:02 Oxygen Delivery Me thod Room Air 07/04/24 22:02 MDM - Psych Medical Decision Making 58yo female presents via EMS for thoughts of self-harm. Patient reports that she has an impending surgery coming and it is making her feel anxious and depressed. Patient states that she has been having thoughts of self-harm for several days now. She reports she does not have a plan, but does not want to hurt herself. Patient reports that she has never been evaluated for suicidal ideation previously. Patient denies having any weapons in the home. Patient is nontoxic in appearance. Vital signs are stable. No leukocytosis or indication of anemia. No electrolyte, renal, or hepatic abnormalities noted. Salicylates and acetaminophen are unremarkable. Alcohol is unremarkable. Influenza A/B, COVID-19, and RSV not detected. Awaiting UA, UDS, TSH, and chest x-ray for medical clearance. Patient will need psychiatric evaluation Lab Data I reviewed the patient's lab results. 07/04/24 22:35 07/04/24 22:35 Laboratory Results WBC 5.85 10^3/uL (3.29-11.43) 07/04/24 22:35 RBC 4.37 10^6/uL (3.85-5.65) 07/04/24 22:35 Hgb 13.00 g/dL (11.27-16.99) 07/04/24 22:35 Hct 38.7 % (36-47) 07/04/24 22:35 MCV 88.6 fl (85-98) 07/04/24 22:35 MCH 29.7 pg (27-33) 07/04/24 22:35 MCHC 33.6 g/dL (30-55) 07/04/24 22:35 RDW 12.4 % (12.1-15.1) 07/04/24 22:35 Plt Count 223 10^3/cmm (157-399) 07/04/24 22:35 MPV 9.9 fL (7.4-10.4) 07/04/24 22:35 Neut % (Auto) 52.2 % 07/04/24 22:35 Lymph % (Auto) 38.1 % 07/04/24 22:35 [place] % (Auto) 7.5 % 07/04/24 22:35 Eos % (Auto) 1.5 % 07/04/24 22:35 Baso % (Auto) 0.5 % 07/04/24 22:35 Neut # (Auto) 3.05 10^3/uL (1.8-7.7) 07/04/24 22:35 Lymph # (Auto) 2.2 10^3/uL (0.8-4.8) 07/04/24 22:35 [place] # (Auto) 0.4 10^3/uL (0.2-0.9) 07/04/24 22:35 Eos # (Auto) 0.1 10^3/uL (0.0-0.8) 07/04/24 22:35 Baso # (Auto) 0.0 10^3/uL (0.0-0.1) 07/04/24 22:35 Nucleated RBC % (auto) 0 % 07/04/24 22: Nucleated RBCs # 0.0 /100WBC 07/04/24 22:35 Sodium 141 mmol/L (136-145) 07/04/24 22:35 Potassium 3.9 mmol/L (3.5-5.1) 07/04/24 22:35 Chloride 106 mmol/L (98-107) 07/04/24 22:35 Carbon Dioxide 24 mmol/L (22-29) 07/04/24 22:35 Anion Gap 14.9 (5-19) 07/04/24 22:35 BUN 16 mg/dL (8-23) 07/04/24 22:35 Creatinine 0.7 mg/dL (0.5-0.9) 07/04/24 22:35 GFR Calculation 85.4 mL/min (90-130) L 07/04/24 22:35 Glucose 124 mg/dL (65-115) H 07/04/24 22:35 Calculated Osmolality 295 mOsm/kg (285-295) 07/04/24 22:35 Calcium 8.8 mg/dL (8.5-10.5) 07/04/24 22:35 Total Bilirubin 0.2 mg/dL (0.15-1.2) 07/04/24 22:35 AST 11 U/L (0-32) 07/04/24 22:35 ALT 8 U/L (0-33) 07/04/24 22:35 Alkaline Phosphatase 63 U/L (35-105) 07/04/24 22:35 Total Protein 6.9 g/dL (6.6-8.7) 07/04/24 22:35 Albumin 3.8 g/dL (3.5-5.2) 07/04/24 22:35 Globulin 3.1 g/dL (1.3-4.6) 07/04/24 22:35 Salicylates < 0.3 mg/dL (3-10) L 07/04/24 22:35 Acetaminophen < 5.0 ug/mL (10-30) L 07/04/24 22:35 Ethyl Alcohol < 10 mg/dL (0-10) 07/04/24 22:35 Influenza A (PCR) Negative (Negative) 07/04/24 22:39 Influenza Type B (PCR) Negative (Negative) 07/04/24 22:39 RSV (PCR) Negative (Negative) 07/04/24 22:39 SARS-CoV-2 (PCR) Negative (Negative) 07/04/24 22:39 All radiology interpretation(s) finalized by discharge Discharge Plan Discharge Condition: Stable Prescriptions: No Action omeprazole 40 mg capsule,delayed release(DR/EC) 40 mg PO BID Qty: 56 0RF ondansetron 4 mg tablet,disintegrating 4 mg PO Q6H PRN (Reason: nausea and vomiting) Qty: 12 0RF Rx Instructions: 340b please acetaminophen [Tylenol Arthritis Pain] 650 mg tablet extended release 650 mg PO Q12H PRN (Reason: pain) Qty: 60 4RF cyclobenzaprine 10 mg tablet 10 mg PO TID PRN (Reason: muscle spasm) Qty: 21 0RF fluoxetine 20 mg capsule 20 mg PO DAILY 30 Days Qty: 30 1RF hydroxyzine HCl 50 mg tablet 50 mg PO TID PRN (Reason: anxiety) Qty: 90 0RF lamotrigine [Lamictal] 25 mg tablet 25 mg PO .COMPLEX 14 Days Qty: 42 0RF Rx Instructions: 25 mg orally; 1 tablets daily X 2 weeks then increase to 2 tablets daily. mirtazapine [Remeron] 30 mg tablet 30 mg PO .HS Qty: 30 1RF pregabalin [Lyrica] 100 mg capsule 100 mg PO BID Qty: 60 0RF tramadol 50 mg tablet 50 mg PO Q8H PRN (Reason: neck pain) 30 Days Qty: 90 0RF clonazepam 0.5 mg tablet 0.5 mg PO TID Qty: 90 1RF gabapentin 600 mg tablet 600 mg PO TID 30 Days Qty: 90 1RF mirtazapine 30 mg Tablet 30 mg PO BEDTIME 30 Days Qty: 30 1RF Referrals: Valentin Vargas MD [Primary Care Provider, Family Practice] Print Language: Thai Coding Level of Care Code ED Design Printer Balloon for Danielle Barrett
--- NOTE | 2024-07-05 01:41 | XRR_ITS ---
PROCEDURE INFORMATION: Exam: XR Chest Exam date and time: 07/05/2024 1:59 AM Age: 58 years old Clinical indication: Screening exam; Other screening; Additional info: Medical clearance TECHNIQUE: Imaging protocol: Radiologic exam of the chest. Views: 1 view. COMPARISON: CR XR shoulder LT min 2V* [id number] 04/10/2024 9:32 AM FINDINGS: Lungs: No consolidation. Pleural spaces: No pleural effusion. No pneumothorax. Heart/Mediastinum: Possible cardiomegaly. Bones/joints: Hardware at the cervicothoracic junction. Soft tissues: Several clips project over the right hemithorax, probably at the anterior chest/breast. XR/XR chest 1V portable [id number] IMPRESSION: No acute findings.
[2024-07-05 01:52] LABS: Thyroid Stimulating Hormone 1.09 uIU/mL (0.27-4.20)
--- NOTE | 2024-07-05 04:19 | ECG_ITS ---
[facility]24[facility]05 Pat Name: Dania Madrigal Department: Room: Gender: Female Sales Secretary: : 1965 Requested By: Rehan Padilla Order Number: [id number] Ferraro MD: Saleem Pineda M.D. Measurements Intervals [place] Rate: 74 P: 36 PA: 170 QRS: 18 QRSD: 91 T: 55 QT: 360 QTc: 401 Interpretive Statements SINUS RHYTHM No previous ECG available for comparison Electronically Signed On 07-06-2024 09:17:44 CDT by Saleem Pineda M.D. [email or web address]
[2024-07-05 06:29] VITALS: BP 144/88; PULSE 65; RESP 16; TEMP 36.8; O2SAT 97
[2024-07-05 06:54] LABS: Bacteria Urine 4+ /hpf; Hyaline Casts Urine 0.81 /lpf; RBC Urine 0-2 /hpf (0-2); Squamous Epithelial Cell Urine 0-5 /hpf (0-5); WBC Urine 21-50 /hpf (0-5)
[2024-07-05 06:59] LABS: Amphetamines Screen Urine Negative (Negative); Barbiturates Screen Urine Negative (Negative); Benzodiazepines Screen Urine Negative (Negative); Cocaine Screen Urine Negative (Negative); Opiate Screen Urine Negative (Negative); PCP Screen Urine Negative (Negative); THC Screen Urine Negative (Negative)
[2024-07-05 07:00] LABS: Add Urine Microscopic? YES; Bilirubin Urine Neg (Negative); Blood Urine Neg (Negative); Glucose Urine UA Norm (Normal); Ketones Urine Negative (Negative); Leukocyte Esterase Urine 2+ (Negative); Nitrate Urine Positive (Negative); Protein Urine Neg (Negative); Specific Gravity, Urine 1.023 (1.005-1.030); Urine Appearance Slightly Cloudy (CLEAR); Urine Color Yellow (Yellow); Urobilinogen Urine 1 mg/dL (Negative); pH Urine 6 (5-7)
[2024-07-05 07:01] LABS: Add Urine Culture? Yes
[2024-07-05] MEDS: pregabalin 100 mg Capsule PO (09:18)
[2024-07-05] MEDS: ondansetron hcl ODT 4 mg Tab PO (09:18)
[2024-07-05] MEDS: gabapentin 300 mg Capsule 600 MG PO (09:19)
[2024-07-05] MEDS: TRAMadol 50 mg Tablet PO (09:19)
[2024-07-05] MEDS: fluoxetine 20 mg Capsule PO (09:19)
[2024-07-05 09:21] VITALS: BP 144/82; PULSE 88; RESP 18; TEMP 36.7; O2SAT 96
[2024-07-05 11:29] VITALS: BP 130/82; PULSE 76; RESP 16; O2SAT 98
--- NOTE | 2024-07-05 11:31 | PC.NURSE ---
REport called to [employer]. Spoke with Kasey Ortiz and all questions answered. TO call [phone] with departure time.
[2024-07-05 13:57] VITALS: BP 130/80; PULSE 70; RESP 16; O2SAT 99
== END 2024-07-05 14:00 ==
PROVIDERS: Emergency Medicine; Nurse Practitioner; Emergency Provider Family Medicine; Family Provider Family Medicine; PCP Family Medicine
DX: R45.851 Suicidal ideations (principal); Z11.52 Encounter for screening for COVID-19; F17.210 Nicotine dependence, cigarettes, uncomplicated
CPT/HCPCS: 36415; 71045; 80053; 80306; 80307; 81001; 84443; 85025; 87077; 87086; 87186; 87637; 93005; 99285; J9999; Q0162

== ENCOUNTER → 2024-07-29 11:11 | Outpatient (BNVA) | payer MEDICARE, MEDICAID, OTHER, SELFPAY ==
[2024-07-28 08:51] VITALS: BP 126/95; BMI 36.1
== END ==
PROVIDERS: Family Provider Family Medicine; PCP Family Medicine
DX: J02.9 Acute pharyngitis, unspecified (principal)
CPT/HCPCS: 87880

== ENCOUNTER 2024-08-10 08:27 | Outpatient (CLI) | payer MEDICARE, MEDICAID, SELFPAY ==
[2024-06-30 10:00] VITALS: BP 126/95; BMI 36.1
[2024-07-28 08:51] VITALS: BP 126/95; BMI 36.1
--- NOTE | 2024-08-10 08:30 | CT_ITS ---
WS: [id number] CT LEFT shoulder arthrogram INDICATION: LEFT shoulder pain TECHNIQUE: LEFT shoulder arthrogram with coronal and sagittal reformatted images FINDINGS: Moderate arthritis AC joint. Moderate narrowing of the subacromial space with slight subacromial spurring. Slight impingement on the distal supraspinatus with mild chronic atrophy. Normal infraspinatus. Normal teres minor. Subscapularis tendon appears intact. Biceps tendon appears intact within the bicipital groove. Intra-articular biceps tendon appears intact. Glenoid labrum appears grossly normal. Moderate to advanced degenerative narrowing glenohumeral articulation with subchondral cystic change and sclerosis. No acute fractures. Partially visualized postoperative changes cervical spine CT/CT shoulder LT w con [id number] IMPRESSION: 1. Moderate arthritis AC joint with mild to moderate narrowing of the subacro mial space. 2. Advanced degenerative narrowing at the glenohumeral articulation. 3. Rotator cuff appears intact with mild atrophy of the distal supraspinatus. 4. Biceps tendon appears intact within the bicipital groove. Intra-articular b iceps tendon appears intact. 5. No other acute findings.
--- NOTE | 2024-08-10 08:30 | IR_ITS ---
WS: [id number] SHOULDER ARTHROGRAM LEFT Fluoroscopic guided left shoulder arthrogram CLINICAL INFORMATION: tear of left shoulder tendon PROCEDURE: The procedure including risks, benefits and complications were discussed with the patient, who agreed to proceed. Using sterile technique, the patient was prepped and draped in the usual sterile fashion. After 1% lidocaine injection using fluoroscopic guidance, a 22-gauge spinal needle was advanced into the glenohumeral joint. Approximately 13 ml of a solution containing 10 ml normal saline, 10 ml Omnipaque 240 was administered. No immediate complications. FLUOROSCOPY TIME: 1min [id number] # of spot films: 2 IR/IR arthrogram shoulderLT [id number] IMPRESSION: Uncomplicated fluoroscopic-guided left shoulder arthrogram. CT to follow.
[2024-08-10] MEDS: iohexol 240 mg/mL 50 mL Btl 20 ML INTRA-ARTI (09:35)
== END 2024-08-10 08:28 | disposition home or self-care (01) ==
PROVIDERS: Family Provider Family Medicine; PCP Family Medicine; Visit Provider Orthopaedic Surgery
DX: S46.812A Strain of other muscles, fascia and tendons at shoulder and upper arm level, left arm, initial encounter (principal); M19.012 Primary osteoarthritis, left shoulder; M62.512 Muscle wasting and atrophy, not elsewhere classified, left shoulder; Z98.890 Other specified postprocedural states
CPT/HCPCS: 23350; 73201; 77002

== ENCOUNTER → 2024-08-11 14:58 | Outpatient (BNVA) | payer MEDICARE, MEDICAID, SELFPAY ==
[2024-07-28 08:51] VITALS: BP 126/95; BMI 36.1
== END ==
PROVIDERS: Family Provider Family Medicine; PCP Family Medicine; Visit Provider Orthopaedic Surgery
DX: M75.112 Incomplete rotator cuff tear or rupture of left shoulder, not specified as traumatic (principal); M75.42 Impingement syndrome of left shoulder
CPT/HCPCS: 99213

== ENCOUNTER → 2024-08-19 09:59 | Outpatient (BNVA) | payer MEDICAID, SELFPAY ==
[2024-07-28 08:51] VITALS: BP 126/95; BMI 36.1
== END ==
PROVIDERS: Family Provider Family Medicine; PCP Family Medicine; Visit Provider Family Medicine
DX: E87.6 Hypokalemia (principal)
CPT/HCPCS: 80053; 85025

== ENCOUNTER 2024-09-03 07:35 | Day surgery (SDC) | payer MEDICARE, MEDICAID, SELFPAY ==
[2024-07-28 08:51] VITALS: BP 126/95; BMI 36.1
[2024-09-03] VITALS (16 sets, daily range): BP systolic 94–127; BP diastolic 62–84; PULSE 68–99; RESP 12–18; TEMP 36.1–36.6; O2SAT 90–98; BMI 33.5
--- NOTE | 2024-09-03 08:44 | W.PM.OPSUD ---
Surgery/Procedure H&P Update DATE OF PROCEDURE: September 03, 2024 DATE H&P PERFORMED: 08/11/24 H&P UPDATE INFORMATION: I have reviewed H&P completed within last 30 days, I have examined patient prior to procedure and No changes to prior documentation PREOP DIAGNOSIS: Internal derangement left shoulder PRIMARY INDICATION FOR PROCEDURE: Torn rotator cuff PLANNED PROCEDURE: Operation Date: 09/03/24 09:20 Proposed Procedures p LEFT Shoulder Arthroscopy(Left) - Ben Gonzalez MD s POSSIBLE Acromioplasty(Left) - Ben Gonzalez MD s POSSIBLE Rotator Cuff Repair - Open(Left) - Ben Gonzalez MD
--- NOTE | 2024-09-03 08:57 | P.ANESASSM_ITS ---
Pre-Anesthetic Assessment Height/Weight: Height 5 ft 4 in Weight 195 lb Pulse Resp BP Pulse Ox O2 Del Method 68 16 114/69 94 Room Air 09/03/24 08:46 09/03/24 08:46 09/03/24 08:46 09/03/24 08:46 09/03/24 08:46 Preop Diagnosis: Internal derangement left shoulder Operation Date: 09/03/24 09:20 Proposed Procedures p LEFT Shoulder Arthroscopy(Left) - Ben Gonzalez MD s POSSIBLE Acromioplasty(Left) - Ben Gonzalez MD s POSSIBLE Rotator Cuff Repair - Open(Left) - Ben Gonzalez MD Was Beta Eloisa taken within 24 hours: N/A Was Clonidine taken within 24 hours: N/A Last intake: Intake Last Liquid Date 09/02/24 Last Liquid Time 21:00 Last Solid Date 09/02/24 Last Solid Time 20:00 Social Tobacco and No alcohol Exam alert, oriented x 3 and regular rate & rhythm Airway Submandibular: within normal limits Mallampati: Class III Comments: Comments: Poor dentition, few teeth left. Denies any loose Anesthetic Plan ASA status: 3 Anesthesia: General and Regional (specify below) Other: Patient is very nervous today because she had her esophagus cut during a spine surgery. No anesthesia issues NPO since yesterday evening Smokes nicotine and marijuana Trazodone nightly Labs 08/19/2024 reviewed and acceptable for procedure Prior methamphetamine abuse, patient has been clean for years Plan for general anesthesia with preop nerve block Medications/Allergies Home Medications ?Medication ?Instructions ?Recorded ?Confirmed ?Last Taken ?Type ondansetron 4 mg disintegrating 4 mg PO Q6H PRN nausea and 03/31/24 09/02/24 04/06/24 Rx tablet vomiting #12 tabs gabapentin 600 mg tablet 600 mg PO TID 30 days #90 ta bs 04/09/24 09/02/24 09/03/24 Rx acetaminophen 650 mg 650 mg PO Q12H PRN pain #60 tabs 05/22/24 09/02/24 07/04/24 Rx tablet,extended release (Tylenol Arthritis Pain) clonazepam 0.5 mg tablet 0.5 mg PO TID #90 tabs 06/0809/02/24 07/04/24 Rx fluticasone propionate 50 1 spray intranasal BID PRN n mario 07/29/24 09/02/24 Unknown Rx mcg/actuation nasal congestion #16 grams spray,suspension (Flonase Allergy Relief) pregabalin 100 mg capsule (Lyrica) 100 mg PO BID #60 c aps 08/04/24 09/02/24 09/01/24 Rx tramadol 50 mg tablet 50 mg PO Q8H PRN neck pain 3 0 days 08/04/24 09/02/24 09/02/24 Rx #90 tabs fluoxetine 40 mg capsule 40 mg PO DAILY #30 caps 08/0409/02/24 09/01/24 Rx hydroxyzine HCl 50 mg tablet 100 mg (2 x 50 mg) PO BID PRN 08/31/24 09/02/24 09/01/24 Rx insomnia #60 tabs trazodone 100 mg tablet 400 mg (4 x 100 mg) PO .HS P RN 08/31/24 09/02/24 09/01/24 Rx insomnia #120 tabs Allergies Allergy/AdvReac Type Severity Reaction Status Date / Time No Known Allergies Allergy Verified 08/31/24 12:43 Current Medications Generic Name Dose Route Start Last Admin Trade Name Freq PRN Reason Stop Dose Admin Sodium Chloride 1,000 mls @ 30 mls/hr 09/03/24 07:45 09/03/24 08:46 Sodium Chloride 0.9% IV 09/04/24 07:44 30 mls/hr .Q24H BEREKET Administration PFSH Anesthesia Medical History (Updated 08/19/24 @ 09:56 by Valentin Vargas MD) Hx of blood clots Cannabis abuse Bipolar 2 disorder Vapes nicotine containing substance Psychiatric care Tobacco use disorder Hx MRSA infection Bipolar disorder Chronic neck pain Insomnia Generalized anxiety disorder Anxiety Surgical History H/O neck surgery History of bladder surgery History of partial hysterectomy Family History Mother Colon cancer Hypertension Social History Smoking and tobacco/nicotine status: former use of tobacco/nicotine Alcohol intake: never Substance/Drug Use: never Adopted: No Caregiver/support person: No Lives independently: Yes Household members: other Details: lives with 7 other people ([facility]) Housing: House Marital status: Number of children: 2 Number of grandchildren: 2 Highest education level completed: Some College, No Degree service: No Current occupational status: disabled Current occupational exposures/hazards: No Pets and animals: No Leisure activites: other Sexually active: No Do you think of yourself as: Straight/Heterosexual Current gender identity: Female Earnestine/Zoroastrianism: Amish Special earnestine needs: No Agree to transfusion: Yes Female Reproductive History Para: 2
--- NOTE | 2024-09-03 08:59 | ANES.PROC ---
Anesthesia Procedures Procedure/Date: 09/03/24 Nerve Block ^: Nerve Block 1: Main Anesthesia: other (100 mcg fentanyl and 2 mg Versed) Time Out Performed: Yes Consent: requested by attending/covering physician and from patient Nerve block location: interscalene Anesthesia monitors applied: pulse oximetry, EKG, BP cuff and oxygen Nerve block position: supine Anesthetic Used: ropivicaine 0.5% Amount of anesthesia used (mL): 30 Ultrasound used to: recognize landmarks and visualize and ID brachial plexus Nerve Stimulator Used?: Yes Interscalene/Femoral BLK: other needle (pjunk 4inch) Injection: neg aspiration of heme Patient Tolerated Procedure: well Complications: none Additional Comments: Decadron 4 mg out of the block
--- NOTE | 2024-09-03 09:03 | SUR.PREOP ---
08:50 LEFT INTERSCALENE NERVE BLOCK PERFORMED BY DOCTOR BIRD, USING 30ml OF 0.5% ROPIVACAINE WITH DECADRON 4mg. PT ON SPINNERET CLEANER SHOWING NSR AND O2 VIA NASAL CANNULA. TOLERATED PROCEDURE WELL.
[2024-09-03] MEDS: ceFAZolin 2,000 mg SDV 2000 MG IVP (10:14)
[2024-09-03] MEDS: ceFAZolin 1,000 mg SDV 1000 MG IRRIGATION (10:15)
--- NOTE | 2024-09-03 10:32 | P.OP_ITS ---
Operative Report Date of procedure: September 03, 2024 Surgeon: Ben Gonzalez MD Procedure: Preoperative diagnosis: Internal derangement of the left shoulder. Possible rotator cuff tear Postoperative diagnosis: Torn anterior labrum, degenerative tearing of the anterior superior and posterior labrum. 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 Patient also had grade II chondromalacia of the glenoid torn rotator cuff, impingement of acromion Procedure: Diagnostic left shoulder arthroscopy with debridement of labrum and all areas, repair of the anterior labrum, chondroplasty of the humeral head , And mini open acromioplasty and rotator cuff repair Surgeon: Ben Gonzalez MD Flash Welding Machine Operator: JYOTI Fleming's assistance was necessary for positioning of the patient, assistance during the procedure, wound closure, transfer the patient to the PACU Anesthesia: General With preoperative scalene block EBL: None Indications: Dania is a 59-year-old white female was referred to the orthopedic clinics with debilitating left shoulder pain. She has previously had a CT arthrogram of her shoulder demonstrating what appears to be impingement of the acromion as well as thinning and possible tearing of the rotator cuff. Patient has failed all conservative measures and therefore upon clinical exam demonstrating that she had a positive drop arm test and other symptoms indicating there is damage within the shoulder she was offered a diagnostic shoulder arthroscopy with all indicated procedures. She also had discussion about acromioplasty and the rotator cuff repair. All risk benefits treatment alternatives were discussed and she was agreeable to proceed with surgical intervention. Procedure: After obtaining written consent patient had preoperative scalene block administered in the preop holding area to her left shoulder. Patient then taken the operating room placed in the op table supine position general anesthetic administered. Once good anesthesia was achieved patient was placed over the beachchair position was secured and padded well. Left upper extremities prepped and draped usual fashion. After surgical timeout standard posterior portals made #11 blade and camera cannulas placed within the glenohumeral joint line. Anterior working portal was also made anteriorly just inferior to the clavicle. Initial evaluation and probing with a small nerve hook demonstrated fraying and tearing of the majority of the labrum from about the 8 o'clock position all the way back over to about the 3 o'clock position in the shoulder. All this area was debrided with mechanical shaver down to stable cartilaginous space. Also noted was cracking and fissuring of the articular surface of the humeral head grade 2/3 as well as grade II chondromalacia of the glenoid. Both of these areas were debrided with mechanical shaver down to stable cartilaginous base further probing the anterior labrum found that there was a tear away from the glenoid just inferior to the biceps tendon approximately half meter to his he centimeters down. Extending for about 1 cm. At this point the area is prepared with mechanical shaver. A single juggernaut stitch was placed within the rim of the glenoid and the labrum was sutured back down to its original spot. Arthroscopy was abandoned at this time and a small minimally invasive incision was made over the anterior lateral corner of the acromion. Sharp dissection taken on down to subcutaneous tissue electrocautery using stasis. Dissection was taken on down through the deltoid removing it from the anterior portion of the acromion with electrocautery. Also soft tissue stripped from the superior aspect. Using a microsagittal saw an acromioplasty was undertaken after was found to be quite tight and impinging upon the rotator cuff. Once this was removed it was noted that there was a small hole in the supraspinatus tendon however by palpation there is further thinning of the rotator cuff in this area. Therefore a size 15 blade was then used to freshen up the edges of this. A single juggernaut double armed 2.9 mm anchor was then driven into this insertion point. Horizontal mattress sutures were used from this anchor to sutured back down in place. Shoulders then washed copiously amounts of irrigation. Deltoid reapproximated 0 Vicryl [id number] sutures. Subcutaneous tissue radha pproximated 0 Vicryl interrupted sutures. Skin was closed with 3-0 Prolene suturing of both portals for the arthroscopy as well as the mini open procedure. Wounds are clean and dry dressed with Xeroform gauze sterile gauze dressing ABDs and adhesive tape. Patient was placed in abduction pillow and sling. They are awakened and transferred to recovery room in stable condition
[2024-09-03] MEDS: fentaNYL 50 mcg/mL INJ 2mL IVP ×2 (11:20→11:25)
--- NOTE | 2024-09-03 11:39 | SUR.PHASEI ---
1139 Patient refuses ice pack to shoulder
--- NOTE | 2024-09-03 12:45 | ANE.PACU2 ---
Inpatient post-anesthesia follow up: Airway intact: Yes Vital signs: Temperature 97.7 F Pulse Rate 84 Respiratory Rate 14 Blood Pressure 108/78 Pulse Oximetry 95 Oxygen Delivery Me thod Room Air Oxygen Flow Rate 6 Fraction of Inspir ed Oxygen Hydration adequate: Yes Nausea and vomiting: No Pain level: 2 Mental status: Baseline
== END 2024-09-03 12:45 | disposition home or self-care (01) ==
PROVIDERS: PCP Family Medicine; Visit Provider Orthopaedic Surgery
PROC: (CPT 29805; principal; 2024-09-03 09:20)
PROC: (CPT 23130; 2024-09-03 09:20)
PROC: (CPT 23410; 2024-09-03 09:20)
PROC: (CPT 23455; 2024-09-03 09:20)
DX: S43.432A Superior glenoid labrum lesion of left shoulder, initial encounter (principal); X58.XXXA Exposure to other specified factors, initial encounter; M94.212 Chondromalacia, left shoulder; M75.102 Unspecified rotator cuff tear or rupture of left shoulder, not specified as traumatic; M75.42 Impingement syndrome of left shoulder; F17.290 Nicotine dependence, other tobacco product, uncomplicated; F12.90 Cannabis use, unspecified, uncomplicated; F15.11 Other stimulant abuse, in remission; F31.81 Bipolar II disorder; F41.9 Anxiety disorder, unspecified; Z86.14 Personal history of Methicillin resistant Staphylococcus aureus infection
CPT/HCPCS: 23410; 23130; C1713; J0690; J1100; J2405; J2704; J3010; J3490; J7030; J9999

== ENCOUNTER → 2024-09-24 15:07 | Outpatient (BNVA) | payer MEDICAID, SELFPAY ==
[2024-07-28 08:51] VITALS: BP 126/95; BMI 36.1
== END ==
PROVIDERS: PCP Family Medicine; Visit Provider Orthopaedic Surgery
DX: Z98.890 Other specified postprocedural states (principal)
CPT/HCPCS: 99024

== ENCOUNTER 2024-11-12 14:42 | Inpatient (IN) | payer MEDICARE, MEDICAID, SELFPAY ==
[2024-07-28 08:51] VITALS: BP 126/95; BMI 36.1
[2024-11-12] VITALS (7 sets, daily range): BP systolic 107–128; BP diastolic 70–83; PULSE 78–108; RESP 12–20; TEMP 37.3–37.7; O2SAT 80–97; BMI 32.5; BMI 37.9
--- NOTE | 2024-11-12 14:53 | ECG_ITS ---
[facility] Test Date: 2024-11-12 Pat Name: Dania Madrigal Department: Room: Gender: Female Commercial Director: : 1965 Requested By: Rosa Goode Order Number: [id number] Ferraro MD: ISABELA DE LA O Measurements Intervals [place] Rate: 105 P: 53 DE: 159 QRS: 11 QRSD: 92 T: 47 QT: 326 QTc: 432 Interpretive Statements SINUS TACHYCARDIA ABNORMAL RHYTHM ECG Compared to ECG 07/05/2024 04:19:26 Sinus rhythm no longer present Electronically Signed On 11-13-2024 20:13:02 CDT by ISABELA DE LA O [email or web address] [id number]
--- NOTE | 2024-11-12 14:53 | XRR_ITS ---
PROCEDURE INFORMATION: Exam: XR Chest Exam date and time: 11/12/2024 2:54 PM Age: 59 years old Clinical indication: Other: Weakness TECHNIQUE: Imaging protocol: Radiologic exam of the chest. Views: 1 view. COMPARISON: CR XR chest 1V portable [id number] 07/05/2024 1:59 AM FINDINGS: Lungs: Diffuse streaky opacities in the right lower lobe concerning for pneumonia. Pleural spaces: No pleural effusions or pneumothorax. Heart/Mediastinum: Stable mild cardiomegaly. Bones/joints: Unremarkable. XR/XR chest 1V portable [id number] IMPRESSION: 1. Diffuse streaky opacities in the right lower lobe concerning for pneumonia. 2. Stable mild cardiomegaly.
[2024-11-12 15:01] LABS: Hematocrit 39.9 % (36-47); Hemoglobin 13.00 g/dL (11.27-16.99); Mean Corpuscular HGB Conc 32.6 g/dL (30-55); Mean Corpuscular Hemoglobin 28.8 pg (27-33); Mean Corpuscular Volume 88.3 fl (85-98); Nucleated Red Blood Cells % 0 %; Platelet Count 214 10^3/cmm (157-399); Red Blood Count 4.52 10^6/uL (3.85-5.65); White Blood Count 8.16 10^3/uL (3.29-11.43)
--- NOTE | 2024-11-12 15:10 | W.ED.DIZZY ---
HPI - Dizziness General: Chief Complaint: Dizziness Stated Complaint: rapid - dizzy with headache Time Seen by Provider: 11/12/24 14:43 History of Present Illness: HPI Narrative: 59-year-old female with a history of bipolar disorder, chronic neck and back pain and anxiety who presents to the emergency room via rapid response from the cafeteria. She was having follow-up after back surgery with Dr. Schwartz. She became very lightheaded and almost passed out. She did not fall out completely. She said she took 3 tramadol earlier today to try and improve the pain in her mouth. She has not been to see a dentist yet. She is mildly tachycardic and has a temp of 99.9 on presentation. She does not have any other complaints other than the tooth pain. No chest pain. No abdominal pain. No nausea or vomiting. Related Data Previous Rx's ?Medication ?Instructions ?Recorded ondansetron 4 mg disintegrating 4 mg PO Q6H PRN nausea and 03/31/24 tablet vomiting #12 tabs acetaminophen 650 mg 650 mg PO Q12H PRN pain #60 tabs 05/22/24 tablet,extended release (Tylenol Arthritis Pain) fluticasone propionate 50 1 spray intranasal BID PRN nasal 07/29/24 mcg/actuation nasal congestion #16 grams spray,suspension (Flonase Allergy Relief) fluoxetine 40 mg capsule 40 mg PO DAILY #30 caps 08/31/24 hydroxyzine HCl 50 mg tablet 100 mg (2 x 50 mg) PO BID PRN 08/31/24 insomnia #60 tabs trazodone 100 mg tablet 400 mg (4 x 100 mg) PO .HS PRN 08/31/24 insomnia #120 tabs hydrocodone 5 mg-acetaminophen 325 1 tab PO Q6H PRN pain 3 weeks #30 09/24/25 mg tablet tabs tramadol 50 mg tablet 50 mg PO Q8H PRN neck pain 30 days 10/29/24 #90 tabs clonazepam 0.5 mg tablet 0.5 mg PO TID #90 tabs 11/05/24 gabapentin 600 mg tablet 600 mg PO TID 30 days #90 tabs 11/05/24 pregabalin 100 mg capsule (Lyrica) 100 mg PO BID #60 caps 11/05/24 Allergies Allergy/AdvReac Type Severity Reaction Status Date / Time No Known Allergies Allergy Verified 11/12/24 08:07 [facility] ED [facility]: Medical History (Updated 11/12/24 @ 17:20 by Rosa Fuller MD) Hx of blood clots Cannabis abuse Bipolar 2 disorder Vapes nicotine containing substance Psychiatric care Tobacco use disorder Hx MRSA infection Bipolar disorder Chronic neck pain Insomnia Generalized anxiety disorder Anxiety Surgical History H/O neck surgery History of bladder surgery History of partial hysterectomy Family History Mother Colon cancer Hypertension Social History Smoking and tobacco/nicotine status: former use of tobacco/nicotine Alcohol intake: never Substance/Drug Use: never Adopted: No Caregiver/support person: No Lives independently: Yes Household members: other Details: lives with 7 other people ([facility]) Housing: House Marital status: Number of children: 2 Number of grandchildren: 2 Highest education level completed: Some College, No Degree service: No Current occupational status: disabled Current occupational exposures/hazards: No Pets and animals: No Leisure activites: other Sexually active: No Do you think of yourself as: Straight/Heterosexual Current gender identity: Female Earnestine/Jainism: Hoahaoism Special earnestine needs: No Agree to transfusion: Yes Female Reproductive History: Para: 2 Physical Exam Narrative: EXAM NARRATIVE: General: Alert, no acute distress. Skin: Warm, dry. Head: Normocephalic, atraumatic. Neck: Supple, trachea midline. Eye: Extraocular movements are intact. Ears, nose, mouth and throat: mucosa moist. Cardiovascular: Regular, tachycardic, normal peripheral perfusion. Respiratory: Coarse lung sounds, initially somewhat tachypneic. Gastrointestinal: Soft, Nontender, Non distended Musculoskeletal: Normal ROM, no deformity. Neurological: Alert and oriented, No focal neurological deficit observed. Psychiatric: Cooperative, appropriate mood & affect. Course Vital Signs: Vital signs: Vital Signs Temperature 99.9 F H 11/12/24 14:49 Pulse Rate 90 11/12/24 16:53 Respiratory Rate 12 11/12/24 16:53 Blood Pressure 123/83 11/12/24 16:53 Pulse Oximetry 93 11/12/24 16:53 Oxygen Delivery Me thod Nasal Cannula 11/12/24 16:53 Oxygen Flow Rate 3 11/12/24 16:53 MDM - Dizziness Medical Decision Making Medical decision making: Differential diagnosis for patient presenting with generalized weakness including but not limited to and based on the above HPI, review of systems and physical exam: Sepsis. Dehydration. Renal failure. Electrolyte abnormalities. Anemia. Congestive heart failure. Hypotension. Coronary syndrome. Hepatitis. Cirrhosis. Infections such as pneumonia, urinary tract infection, [place]ick bourne illness, Cellulitis, Viral infections including influenza and Covid-19. Workup: labwork and lab/exam driven imaging ordered to evaluate, rule in and rule out above pathologies. EKG: Time 1458. Rate 105. Sinus tachycardia, No ST-T changes, no ectopy, normal WY & QRS intervals, This was reviewed and interpreted by myself the ER physician at 1503 Repeat EKG: Time 1642. Rate 92. Normal sinus rhythm, No ST-T changes, no ectopy, normal WY & QRS intervals, This was reviewed and interpreted by myself the ER physician at 1648. Heart rate has decreased from 10 5-92. Chest x-ray: Right infiltrate suspicious for pneumonia. Patient has cough and fever. This was reviewed and interpreted by myself the emergency room physician. I also reviewed the radiology report. Lab Review: Laboratory results were reviewed and interpreted by myself the emergency room physician. No leukocytosis. No anemia. No renal failure. Flu COVID and RSV are negative. Urinalysis is negative for infection. Troponin is negative lactic acid is negative. I reviewed the patient's medical record. Reexamination: Patient continues to require 3 L nasal cannula. She endorses cough. She has been short of breath she says. No altered mental status. Currently her breathing rate is much better. Consultation: I spoke with Dr. Morris who is on-call for the hospitalist service who agrees to admission Assessment and plan: Pneumonia Hypoxemia Near syncope ?IV doxycycline and 2 L normal saline bolus based on ideal body weight. Septic bolus given although I do not think she is septic at this time. Given that she does not have a white count or lactic acidosis. But her blood pressure was a bit soft and she is a little tachycardic initially so empiric treatment as sepsis. Blood cultures and lactic acid were sent. -I discussed the patient with the hospitalist on-call who is admitting the patient. - Discussed findings and plan with patient. Answered any questions. - All laboratory values were reviewed and interpreted personally by myself, the ER physician - All imaging was reviewed and interpreted personally by myself, the ER physician. - Evaluation and treatment of this problem were appropriate in the emergency setting Lab Data 11/12/24 14:57 11/12/24 15:45 Radiology Impressions Chest X-Ray 11/12/24 14:53 IMPRESSION: 1. Diffuse streaky opacities in the right lower lobe concerning for pneumonia. 2. Stable mild cardiomegaly. Laboratory Results WBC 8.16 10^3/uL (3.29-11.43) 11/12/24 14:57 RBC 4.52 10^6/uL (3.85-5.65) 11/12/24 14:57 Hgb 13.00 g/dL (11.27-16.99) 11/12/24 14:57 Hct 39.9 % (36-47) 11/12/24 14:57 MCV 88.3 fl (85-98) 11/12/24 14:57 MCH 28.8 pg (27-33) 11/12/24 14:57 MCHC 32.6 g/dL (30-55) 11/12/24 14:57 RDW 13.2 % (12.1-15.1) 11/12/24 14:57 Plt Count 214 10^3/cmm (157-399) 11/12/24 14:57 MPV 9.5 fL (7.4-10.4) 11/12/24 14:57 Neut % (Auto) 69.2 % 11/12/24 14:57 Lymph % (Auto) 19.6 % 11/12/24 14:57 [place] % (Auto) 9.3 % 11/12/24 14:57 Eos % (Auto) 1.3 % 11/12/24 14:57 Baso % (Auto) 0.4 % 11/12/24 14:57 Neut # (Auto) 5.64 10^3/uL (1.8-7.7) 11/12/24 14:57 Lymph # (Auto) 1.6 10^3/uL (0.8-4.8) 11/12/24 14:57 [place] # (Auto) 0.8 10^3/uL (0.2-0.9) 11/12/24 14:57 Eos # (Auto) 0.1 10^3/uL (0.0-0.8) 11/12/24 14:57 Baso # (Auto) 0.0 10^3/uL (0.0-0.1) 11/12/24 14:57 Nucleated RBC % (auto) 0 % 11/12/24 14:57 Nucleated RBCs # 0.0 /100WBC 11/12/24 14:57 Sodium 139 mmol/L (136-145) 11/12/24 15:45 Potassium 4.4 mmol/L (3.5-5.1) 11/12/24 15:45 Chloride 101 mmol/L (98-107) 11/12/24 15:45 Carbon Dioxide 26 mmol/L (22-29) 11/12/24 15:45 Anion Gap 16.4 (5-19) 11/12/24 15:45 BUN 17 mg/dL (8-23) 11/12/24 15:45 Creatinine 0.8 mg/dL (0.5-0.9) 11/12/24 15:45 GFR Calculation 72.9 mL/min (90-130) L 11/12/24 15:45 Glucose 115 mg/dL (65-115) 11/12/24 15:45 Calculated Osmolality 290 mOsm/kg (285-295) 11/12/24 15:45 Lactic Acid 0.9 mmol/L (0.5-2.2) 11/12/24 15:19 Calcium 9.1 mg/dL (8.5-10.5) 11/12/24 15:45 Total Bilirubin 0.3 mg/dL (0.15-1.2) 11/12/24 15:45 AST 9 U/L (0-32) 11/12/24 15:45 ALT 10 U/L (0-33) 11/12/24 15:45 Alkaline Phosphatase 73 U/L (35-105) 11/12/24 15:45 Troponin T Baseline 12 ng/L (0-10) H 11/12/24 15:45 Total Protein 7.0 g/dL (6.6-8.7) 11/12/24 15:45 Albumin 4.0 g/dL (3.5-5.2) 11/12/24 15:45 Globulin 3.0 g/dL (1.3-4.6) 11/12/24 15:45 TSH 2.05 uIU/mL (0.27-4.20) 11/12/24 15:45 HCG, Qual Negative (Negative) 11/12/24 16:23 Amorphous Sediment Not Reportable 11/12/24 16:23 Salicylates < 0.3 mg/dL (3-10) L 11/12/24 15:45 Urine Opiates Screen Negative ng/mL (Negative) 11/12/24 16:23 Acetaminophen < 5.0 ug/mL (10-30) L 11/12/24 15:45 Ur Barbiturates Screen Positive ng/mL (Negative) H 11/12/24 16:23 Ur Phencyclidine Scrn Negative ng/mL (Negative) 11/12/24 16:23 Ur Amphetamines Screen Negative ng/mL (Negative) 11/12/24 16:23 U Benzodiazepines Scrn Negative ng/mL (Negative) 11/12/24 16:23 Urine Cocaine Screen Negative ng/mL (Negative) 11/12/24 16:23 U Marijuana (THC) Screen Negative ng/mL (Negative) 11/12/24 16:23 Ethyl Alcohol < 10 mg/dL (0-10) 11/12/24 15:45 Influenza A (PCR) Negative (Negative) 11/12/24 15:12 Influenza Type B (PCR) Negative (Negative) 11/12/24 15:12 RSV (PCR) Negative (Negative) 11/12/24 15:12 SARS-CoV-2 (PCR) Negative (Negative) 11/12/24 15:12 All radiology interpretation(s) finalized by discharge Discharge Plan Discharge Patient Disposition: Admitted As Inpatient Clinical Impression: Pneumonia, Hypoxemia, Syncope Condition: Stable Coding Level of Care Code ED Typewriter Mechanic for Danielle Barrett
[2024-11-12] MEDS: acetaminophen 1,000 MG/100 ML PIGGYBACK 400 MG IV (15:36)
[2024-11-12 15:54] LABS: Respiratory Syncytial Virus Ce NEGATIVE (Negative); SARS-CoV-2 PCR NEGATIVE (Negative)
[2024-11-12 15:56] LABS: Lactic Sepsis W/Reflex 0.9 mmol/L (0.5-2.2)
[2024-11-12 16:24] LABS: Troponin(5th) Baseline 12 ng/L (0-10)
[2024-11-12 16:34] LABS: Alanine Aminotransferase 10 U/L (0-33); Albumin Level 4.0 g/dL (3.5-5.2); Alkaline Phosphatase 73 U/L (35-105); Anion Gap 16.4 (5-19); Aspartate Amino Transferase 9 U/L (0-32); Blood Urea Nitrogen 17 mg/dL (8-23); Calcium 9.1 mg/dL (8.5-10.5); Carbon Dioxide 26 mmol/L (22-29); Chloride 101 mmol/L (98-107); Creatinine Clr Calc Pharmacy 78.4503; Globulin 3.0 g/dL (1.3-4.6); Glucose 115 mg/dL (65-115); Osmolality Calculated 290 mOsm/kg (285-295); Potassium 4.4 mmol/L (3.5-5.1); Sodium 139 mmol/L (136-145); Thyroid Stimulating Hormone 2.05 uIU/mL (0.27-4.20); Total Protein 7.0 g/dL (6.6-8.7)
[2024-11-12 16:35] LABS: Acetaminophen < 5.0 ug/mL (10-30); Alcohol Level < 10 mg/dL (0-10); Salicylate < 0.3 mg/dL (3-10)
--- NOTE | 2024-11-12 16:42 | ECG_ITS ---
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
[2024-11-12] MEDS: doxycycline 100 MG in sodium chloride 0.9% (plus) 100 ML IV (16:54)
[2024-11-12 17:05] LABS: Glucose Urine UA Negative (Normal); Nitrate Urine Negative (Negative); Specific Gravity, Urine 1.021 (1.005-1.030)
[2024-11-12 17:07] LABS: Add Urine Microscopic? YES; HCG Qualitative Urine. Negative (Negative)
[2024-11-12 17:12] LABS: PCP Screen Urine Negative (Negative)
[2024-11-12 17:38] LABS: UA Slide Review UA Slide Review Perf
[2024-11-12 18:11] LABS: Troponin 5 2HR 12.11 ng/L (0-10); Troponin 5 2HR Delta 0.11 ABS# (0-10)
--- NOTE | 2024-11-12 18:11 | USCV_ITS ---
Rohan Dania Age: 59 Gender: F : 1965 Exam Date: 11/12/2024 20:12 Ordering Phys: Jorge Luis Morris MD Technologist: COURTNEY [place] [facility] [place]: syncope, bipolar, pneumonia, febrile 99.9F BP: 128 / 83 HR: 78 Rhythm: Sinus Technical Quality: Fair MEASUREMENTS (Male / Female) Normal Values 2D ECHO LV Diastolic Diameter PLAX 3.7 cm 4.2 - 5.9 / 3.9 - 5.3 cm IVS Diastolic Thickness 1.8 cm 0.6 - 1.0 / 0.6 - 0.9 cm IVS Systolic Thickness 1.4 cm LVPW Diastolic Thickness 1.8 cm 0.6 - 1.0 / 0.6 - 0.9 cm LVPW Systolic Thickness 2.1 cm LVOT Diameter 1.7 cm LV Ejection Fraction 2D Teich 68.8 % LV Ejection Fraction MOD 4C 55.7 % LV Ejection Fraction MOD 2C 61.9 % LV Ejection Fraction 2C AL 63.2 % LA Diameter 3.5 cm Aorta at Sinotubular Diameter 2.9 cm IVC Diameter 2.0 cm M-MODE LA Ao Ratio MM 1.4 AV Cusp Separation MM 1.6 cm DOPPLER AV Peak Velocity 380.0 cm/s LVOT Peak Velocity 146.0 cm/s AV Area Cont Eq vti 1.0 cm squared AV Area Cont Eq pk 0.8 cm squared MV Peak Velocity 124.0 cm/s MV Area PHT 2.4 cm squared Mitral E to A Ratio 0.8 TR Peak Velocity 233.0 cm/s TR Peak Gradient 21.7 mmHg TV Peak E Velocity 67.0 cm/s PV Peak Velocity 101.0 cm/s FINDINGS Left Ventricle Normal left ventricular size and systolic function, EF 60-65%. No regional wall motion abnormalities. Moderate to severe left ventricular hypertrophy. Grade 1 diastolic dysfunction Right Ventricle Normal in size and function Right Atrium Normal right atrial size. Left Atrium Normal left atrial size. Mitral Valve Structurally normal mitral valve. Mild mitral regurgitation. Aortic Valve Aortic valve is thickened. Mild to moderate aortic regurgitation. Moderate to severe aortic stenosis with aortic valve area of 0.97 cm2 and mean gradient of 29mmHg. Tricuspid Valve Mild tricuspid regurgitation. Pulmonary artery systolic pressure is normal. Pulmonic Valve Not well-visualized Pericardium Normal Aorta Normal in size IVC Appears to be normal CONCLUSIONS LV systolic function is normal with EF of 60-65% Grade 1 diastolic dysfunction Moderate to severe left ventricular hypertrophy. Mild mitral regurgitation. Mild to moderate aortic regurgitation. Moderate to severe aortic stenosis Mild tricuspid regurgitation. Saleem Pineda MD (Electronically Signed) Final Date: 13 November 2024 09:14 S
--- NOTE | 2024-11-12 18:11 | USCV_ITS ---
Dania Madrigal Age: 59 Gender: F : 1965 Exam Date: 11/12/2024 19:46 Ordering Phys: Jorge Luis Morris MD Technologist: COURTNEY [place] [facility] [place]: syncope, bipolar, febrile 99.9F Risk Factors: unknown Previous Vascular Surgery: unknown Right Brachial BP: / Left Brachial BP: / Right Left Velocity (cm/s) Spectral Plaque Velocity (cm/s) Spectral Plaque Syst/Diast Broadening Syst/Diast Broadening 143.50/30.30 Min None Prox CCA 103.90/ 31.00 Min None 131.60/36.50 Min None Mid CCA 85.90 / 38.70 Min None 105.50/40.80 Min Hetro Distal CCA 81.80 / 34.60 Min Hetro 70.50/ 16.90 Min Jaron Prox ICA 85.50 / 30.40 Min Jaron 95.30/ 40.80 Min Homo Mid ICA 95.40 / 40.50 Min Homo 52.90/ 19.50 Min Hetro Distal ICA 68.00 / 33.90 Min Hetro 81.80 Min Homo ECA 85.50 Min Homo 0.90 ICA/CCA 1.20 Antegrade Vertebral Antegrade 40.50/ 12.60 cm/s 48.50/ 18.80 cm/s Tri Subclavian Tri 115.5 83.40 0 CONCLUSIONS Right ICA stenosis <50%. Mild atheromatous plaque right carotid bulb/ICA. Left ICA stenosis <50%. Mild atheromatous plaque left carotid bulb/ICA. Normal antegrade Doppler flow noted in the right vertebral artery. Normal antegrade Doppler flow noted in the left vertebral artery. Patric Avila MD (Electronically Signed) Final Date: 13 November 2024 09:48 S
--- NOTE | 2024-11-12 18:12 | P.HP_ITS ---
Providers/Chief Complaint 2 Admitting Physician: Jorge Luis Morris MD Primary Care Provider: Valentin Vargas MD Chief Complaint: rapid - dizzy with headache History of Present Illness Dania Madrigal is a 59 year old female with a past medical history of hypothyroidism, generalized anxiety disorder, insomnia, who presents [facility] due to dizziness, fatigue, shortness of breath, cough, fevers. Currently patient is alert oriented x 3, following all commands, she tells me for the last few days she has been experiencing fevers, chills, cough, wheezing, shortness of breath, she was in the cafeteria at [facility], when she started to feel lightheaded and dizzy, she never actually passed out she tells me, but felt like she was going to pass out, she had a rapid response called, she was brought to the emergency room, the emergency room she was diagnosed with pneumonia, requiring 3 L, she has a low-grade fever, does report a history of blood clots. She tells me that when she was in her 40s, she had neck surgery, which resulted in spinal abscess, she was in the ICU for a prolonged period of time, on the ventilator, she was paralyzed at some point, but she has since then has made a significant recovery, because of this she wants to be a DNR/DNI, she does not want to have aggressive interventions Review of Systems 2 Const: Reports: fever(s), chills, fatigue and malaise Resp: Reports: dyspnea and non-productive cough Medications/Allergies Home Medications ?Medication ?Instructions ?Recorded ?Confirmed ?Last Taken ?Type ondansetron 4 mg disintegrating 4 mg PO Q6H PRN nausea and 03/31/24 10/22/24 04/06/24 Rx tablet vomiting #12 tabs acetaminophen 650 mg 650 mg PO Q12H PRN pain #60 tabs 05/22/24 10/22/24 07/04/24 Rx tablet,extended release (Tylenol Arthritis Pain) fluticasone propionate 50 1 spray intranasal BID PRN n mario 07/29/24 10/22/24 Unknown Rx mcg/actuation nasal congestion #16 grams spray,suspension (Flonase Allergy Relief) fluoxetine 40 mg capsule 40 mg PO DAILY #30 caps 08/0410/22/24 09/01/24 Rx hydroxyzine HCl 50 mg tablet 100 mg (2 x 50 mg) PO BID PRN 08/31/24 10/22/24 09/01/24 Rx insomnia #60 tabs trazodone 100 mg tablet 400 mg (4 x 100 mg) PO .HS P RN 08/31/24 10/22/24 09/01/24 Rx insomnia #120 tabs hydrocodone 5 mg-acetaminophen 325 1 tab PO Q6H PRN pa in 3 weeks #30 09/24/24 10/22/24 Unknown Rx mg tablet tabs tramadol 50 mg tablet 50 mg PO Q8H PRN neck pain 3 0 days 10/29/24 Unknown Rx #90 tabs clonazepam 0.5 mg tablet 0.5 mg PO TID #90 tabs 11/05 Unknown Rx gabapentin 600 mg tablet 600 mg PO TID 30 days #90 ta bs 11/05/24 Unknown Rx pregabalin 100 mg capsule (Lyrica) 100 mg PO BID #60 c aps 11/05/24 Unknown Rx Allergies Allergy/AdvReac Type Severity Reaction Status Date / Time No Known Allergies Allergy Verified 11/12/24 08:07 PFSH Acute 2 PFSH: Medical History Hx of blood clots Cannabis abuse Bipolar 2 disorder Vapes nicotine containing substance Psychiatric care Tobacco use disorder Hx MRSA infection Bipolar disorder Chronic neck pain Insomnia Generalized anxiety disorder Anxiety Surgical History H/O neck surgery History of bladder surgery History of partial hysterectomy Family History Mother Colon cancer Hypertension Social History Smoking and tobacco/nicotine status: former use of tobacco/nicotine Alcohol intake: never Substance/Drug Use: never Adopted: No Caregiver/support person: No Lives independently: Yes Household members: other Details: lives with 7 other people ([facility]) Housing: House Marital status: Number of children: 2 Number of grandchildren: 2 Highest education level completed: Some College, No Degree service: No Current occupational status: disabled Current occupational exposures/hazards: No Pets and animals: No Leisure activites: other Sexually active: No Do you think of yourself as: Straight/Heterosexual Current gender identity: Female Earnestine/Jew: Temple Special earnestine needs: No Agree to transfusion: Yes Female Reproductive History: Para: 2 Vitals/I&O/Wt Last Vital Signs Temp 99.9 F H 11/12/24 14:49 Pulse 91 11/12/24 17:30 Resp 14 11/12/24 17:30 BP 123/83 11/12/24 17:30 Pulse Ox 93 11/12/24 17:30 O2 Del Method Nasal Cannula 11/12/24 17:30 O2 Flow Rate 3 11/12/24 17:30 11/12/24 11/12/24 11/12/24 06:59 14:59 22:59 Intake Total 1100 / 1100 Balance 1100 / 1100 Weight last 48 hrs Weight 86.183 kg Physical Exam 2 Const: COMMON NORMALS: no acute distress and patient oriented x3 HENMT: COMMON NORMALS: normocephalic HEAD & SCALP: normocephalic Eye: COMMON NORMALS: Equal, round and reactive pupils present Neck/C-Spine: COMMON NORMALS: no JVD Resp: COMMON NORMALS: normal respiratory effort, No retractions and No use of accessory muscles AUSCULTATION: crackles and wheezes Cardio: COMMON NORMALS: regular rate, regular rhythm, S1 normal heart sound present and S2 normal heart sound present RATE: regular rate RHYTHM: r egular rhythm HEART SOUNDS: S1 normal heart sound present and S2 normal heart sound present GI: COMMON NORMALS: Normal to inspection, nondistended, normoactive bowel sounds present, Soft to palpation and non-tender Extremity: COMMON NORMALS: no calf tenderness and no pedal edema Neuro: COMMON NORMALS: patient oriented x3, CN's II-XII intact bilaterally and moves all extremities Psych: COMMON NORMALS: mental status grossly normal Data 11/12/24 14:57 11/12/24 15:45 Micro: Microbiology 11/12/24 15:24 Blood Culture - Preliminary Blood SPECIMEN COLLECTED 11/12/24 15:19 Blood Culture - Preliminary Blood SPECIMEN COLLECTED A&P Assessment and plan 1. Pre-syncope: 2. Pneumonia: 3. Acute hypoxic respiratory failure: Plan: Acute hypoxic respiratory failure - Secondary to pneumonia - Does report vaping - Does report history of blood clots - Plan - CT angiogram of the chest - Rocephin - Azithromycin - DuoNeb - Budesonide - Monitor respiratory status closely - Patient is DNR/DNI, confirmed with patient multiple times she does not want to be resuscitated or intubation - Lovenox for DVT prophylaxis Pre-syncope - Telemetry monitoring - Cardiac echo - Carotid artery ultrasound PDMP PDMP Reviewed: Not Reviewed Attestations 2 Medical Necessity Statement*: Patient requires hospitalization, inpatient, greater than 2 midnights, for acute hypoxic respiratory failure secondary to pneumonia Diagnoses Pre-syncope R55 Pneumonia J18.9 Acute hypoxic respiratory failure J96.01
[2024-11-12 19:59] LABS: Procalcitonin 2.11 ng/mL (0-0.5); Thyroid Stimulating Hormone 1.14 uIU/mL (0.27-4.20)
--- NOTE | 2024-11-12 20:45 | ECG_ITS ---
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
[2024-11-12 22:15] LABS: Troponin 5 6HR 11.76 ng/L (0-10)
[2024-11-12 22:17] LABS: Troponin 5 6HR Delta -0.24 ng/L (0-12)
[2024-11-13] VITALS (19 sets, daily range): BP systolic 104–134; BP diastolic 66–88; PULSE 5–96; RESP 14–22; TEMP 36.6–37; O2SAT 87–98
[2024-11-13 03:20] LABS: Hematocrit 33.2 % (36-47); Hemoglobin 10.60 g/dL (11.27-16.99); Mean Corpuscular HGB Conc 31.9 g/dL (30-55); Mean Corpuscular Hemoglobin 28.7 pg (27-33); Mean Corpuscular Volume 90.0 fl (85-98); Nucleated Red Blood Cells % 0 %; Platelet Count 189 10^3/cmm (157-399); Red Blood Count 3.69 10^6/uL (3.85-5.65); White Blood Count 7.57 10^3/uL (3.29-11.43)
[2024-11-13 03:45] LABS: Anion Gap 15.0 (5-19); Blood Urea Nitrogen 13 mg/dL (8-23); Calcium 8.3 mg/dL (8.5-10.5); Carbon Dioxide 25 mmol/L (22-29); Chloride 106 mmol/L (98-107); Creatinine Clr Calc Pharmacy 135.9437; Glucose 128 mg/dL (65-115); Osmolality Calculated 296 mOsm/kg (285-295); Potassium 4.0 mmol/L (3.5-5.1); Sodium 142 mmol/L (136-145)
[2024-11-13] MEDS: HYDROcodone-acetaminophen 5-325 mg Tablet 1 TAB PO ×3 (04:23→21:19)
[2024-11-13 05:01] LABS: NT Pro B Type Natriuretic Pept 210 pg/mL (0-125)
--- NOTE | 2024-11-13 07:00 | CTR_ITS ---
PROCEDURE INFORMATION: Exam: CTA Chest With Contrast Exam date and time: 11/13/2024 4:46 AM Age: 59 years old Clinical indication: Shortness of breath; Additional info: SOB, wheezing, TECHNIQUE: Imaging protocol: Computed tomographic angiography of the chest with contrast. Exam focused on the arteries. 3D rendering (Not supervised by radiologist): MIP and/or 3D reconstructed images were created by the technologist. Radiation optimization: All CT scans at this facility use at least one of these dose optimization techniques: automated exposure control; mA and/or kV adjustment per patient size (includes targeted exams where dose is matched to clinical indication); or iterative reconstruction. Contrast material: OMNI 350; Contrast volume: 100 ml; Contrast route: INTRAVENOUS (IV); COMPARISON: CR XR chest 1V portable [id number] 11/12/2024 2:54 PM RADIATION DOSE METRICS: Total DLP (mGy-cm): 519.46 FINDINGS: Pulmonary arteries: No evidence of pulmonary embolus. Aorta: Unremarkable. No aortic aneurysm. No aortic dissection. Lungs: Emphysematous COPD. Bands of atelectasis or infiltrate in the right middle lobe and right lower lobe. Small nodules in the right lower lobe measure up to 5 mm in size. Follow-up CT recommended. Pleural spaces: Unremarkable. No pneumothorax. No pleural effusion. Heart: Unremarkable. No cardiomegaly. No pericardial effusion. Coronary arteries: Coronary artery calcifications. Lymph nodes: Moderate central and right hilar adenopathy, nonspecific. Liver: Left hepatic 15 mm low-attenuation structure is likely a cyst or hemangioma. Pancreas: Incompletely imaged calcific pancreatitis. Bones/joints: Unremarkable. No acute fracture. Soft tissues: Small hernia. CT/CT angio chest PE protcl [id number] IMPRESSION: 1. Moderate nonspecific central and right hilar adenopathy. 2. Bands of atelectasis or infiltrate on the right. 3. Small right lower lobe pulmonary nodules. 4. Small low-attenuation structure in the left hepatic lobe. 5. For patients at low risk (minimal or absent history of smoking and of other known risk factors), no routine follow-up is indicated. For patients at high risk (history of smoking or of other known risk factors), consider optional CT Chest at 12 months. (Reference: Julia) COMMENTS: The presence of pulmonary emphysema on CT is an independent risk factor for lung cancer. In the absence of a history or active diagnosis of lung cancer, it is recommended that this patient with emphysema be evaluated for enrollment in a low dose CT lung cancer screening program. REFERENCES: Julia White, et al. Guidelines for Management of Incidental Pulmonary Nodules Detected on CT Images: From the Fleischner Society 2017. Radiology. 2017;284(1):228-243.
[2024-11-13] MEDS: cefTRIAXone 1,000 mg SDV 1000 MG IVP (08:18)
[2024-11-13] MEDS: FUROsemide 10 mg/mL SDV 4mL 40 MG IVP (09:25)
--- NOTE | 2024-11-13 10:11 | PC.CHAP ---
Pastoral Care Encounter/Spiritual Assessment Type of Contact [] Declined payroll administrative assistant visit [] Patient/Family/Request visit [] Outpatient visit [] Follow-up visit [] Physician referral [] Code/Alert [x] Routine visit [] Staff referral [] Actively dying [] Patient sleeping [] Family support [] [] Out of room [] Palliative care [] [] Receiving care in room [] Pre-surgical visit [] Trauma [] Long length of stay [] ICU visit [] Other: Relational/Emotional Strength [x] Patient feels connected with others/family/visitors/staff [] Distress [] Loneliness/isolation [] Abandonment Spirituality of Patient [x] Person of Earnestine [] Attends Pentecostalism of their Earnestine [x] Believes in Prayer [] Reads Bible or Lutheran materials [] There are Spiritual issues to be addressed Crm Coordinator Interventions [x Prayer [x] Active listening [x] Non-anxious presence [x] Spiritual/emotional support [] Crisis/trauma care [] Spiritual counseling [] Bereavement support [] Provided bereavement packet [] Provided Bible/devotional materials [] Provided toy/stuffed animal, coloring book to patient or family member [] Provided Communion [] Anointing/[place] [] Salvation [x] Completed spiritual assessment [] Other: Impact on Illness or Injury [] Angry [] Fearful [] Anxious [] Often cries [] Exhaustion [] Unable to work [] Unable to attend confucianism [] Unable to walk/stand [] Unable to read [] Unable to drive [] Unable to eat/drink [] Unable to sleep [] Unable to be with family [] Patient intubated [] Other: Summary Time spent with patient 5 min
--- NOTE | 2024-11-13 15:46 | P.PN_ITS ---
Subjective 2 Subjective: Patient was seen this morning, currently alert oriented x 3, following commands, denies any fevers, no chills, she does complain about a productive cough, does report wheezing Vitals/I&O/Wt Last Vital Signs Temp 98.6 F 11/13/24 11:37 Pulse 81 11/13/24 15:27 Resp 16 11/13/24 15:27 BP 118/71 11/13/24 11:37 Pulse Ox 96 11/13/24 15:27 O2 Del Method Nasal Cannula 11/13/24 15:27 O2 Flow Rate 2 11/13/24 15:27 11/13/24 11/13/24 11/13/24 06:59 14:59 22:59 Intake Total 946.25 / 3146.25 610 / 610 Output Total 1200 / 1200 Balance 946.25 / 2646.25 -590 / -590 Weight last 48 hrs Weight 98.883 kg Weight 100.153 kg Weight 86.183 kg Physical Exam 2 Const: COMMON NORMALS: no acute distress and patient oriented x3 Resp: COMMON NORMALS: normal respiratory effort, No retractions, No use of accessory muscles and clear to auscultation bilaterally AUSCULTATION: clear to auscultation bilaterally Cardio: COMMON NORMALS: regular rate, regular rhythm, S1 normal heart sound present and S2 normal heart sound present RATE: regular rate RHYTHM: r egular rhythm HEART SOUNDS: S1 normal heart sound present and S2 normal heart sound present GI: COMMON NORMALS: Normal to inspection, nondistended, normoactive bowel sounds present and non-tender Extremity: COMMON NORMALS: no pedal edema Neuro: COMMON NORMALS: patient oriented x3 Psych: COMMON NORMALS: mental status grossly normal Data 11/13/24 03:05 11/13/24 03:05 Micro: Microbiology 11/12/24 15:24 Blood Culture - Preliminary Blood NEGATIVE TO DATE 11/12/24 15:19 Blood Culture - Preliminary Blood NEGATIVE TO DATE 11/12/24 16:23 Urine Culture - Preliminary Urine,Clean Catch Gram Negative Rods A&P Assessment and plan 1. Pre-syncope: 2. Pneumonia: 3. Acute hypoxic respiratory failure: Plan: Acute hypoxic respiratory failure - Secondary to pneumonia - Does report vaping - Does report history of blood clots - Plan - CT angiogram of the chest no pulmonary embolism - Rocephin - Azithromycin - DuoNeb - Budesonide - Monitor respiratory status closely - Patient is DNR/DNI, confirmed with patient multiple times she does not want to be resuscitated or intubation - Lovenox for DVT prophylaxis Pre-syncope - Telemetry monitoring - Cardiac echo CONCLUSIONS LV systolic function is normal with EF of 60-65% Grade 1 diastolic dysfunction Moderate to severe left ventricular hypertrophy. Mild mitral regurgitation. Mild to moderate aortic regurgitation. Moderate to severe aortic stenosis Mild tricuspid regurgitation. - Carotid artery ultrasound CONCLUSIONS Right ICA stenosis <50%. Mild atheromatous plaque right carotid bulb/ICA. Left ICA stenosis <50%. Mild atheromatous plaque left carotid bulb/ICA. Normal antegrade Doppler flow noted in the right vertebral artery. Normal antegrade Doppler flow noted in the left vertebral artery. PDMP PDMP Reviewed: Not Reviewed Attestations 2 Medical Necessity Statement*: Patient requires hospitalization for acute hypoxic respiratory failure, secondary pneumonia, presyncope Diagnoses Pre-syncope R55 Pneumonia J18.9 Acute hypoxic respiratory failure J96.01
[2024-11-14] VITALS (13 sets, daily range): BP systolic 104–129; BP diastolic 68–83; PULSE 65–82; RESP 15–18; TEMP 36.5–37; O2SAT 95–99
[2024-11-14 03:46] LABS: Hematocrit 31.4 % (36-47); Hemoglobin 10.20 g/dL (11.27-16.99); Mean Corpuscular HGB Conc 32.5 g/dL (30-55); Mean Corpuscular Hemoglobin 28.9 pg (27-33); Mean Corpuscular Volume 89.0 fl (85-98); Nucleated Red Blood Cells % 0 %; Platelet Count 209 10^3/cmm (157-399); Red Blood Count 3.53 10^6/uL (3.85-5.65); White Blood Count 5.99 10^3/uL (3.29-11.43)
[2024-11-14 04:16] LABS: Anion Gap 12.4 (5-19); Blood Urea Nitrogen 7 mg/dL (8-23); Calcium 8.8 mg/dL (8.5-10.5); Carbon Dioxide 29 mmol/L (22-29); Chloride 104 mmol/L (98-107); Creatinine Clr Calc Pharmacy 134.9961; Glucose 130 mg/dL (65-115); Osmolality Calculated 294 mOsm/kg (285-295); Potassium 3.4 mmol/L (3.5-5.1); Sodium 142 mmol/L (136-145)
[2024-11-14] MEDS: cefTRIAXone 1,000 mg SDV 1000 MG IVP (08:59)
--- NOTE | 2024-11-14 14:04 | P.PN_ITS ---
Subjective 2 Subjective: Patient was seen this morning, continues to complain of weakness, fatigue, shortness of breath Vitals/I&O/Wt Last Vital Signs Temp 97.8 F 11/14/24 11:25 Pulse 74 11/14/24 11:25 Resp 16 11/14/24 11:25 BP 120/73 11/14/24 11:25 Pulse Ox 95 11/14/24 11:25 O2 Del Method Nasal Cannula 11/14/24 11:25 O2 Flow Rate 2 11/14/24 11:25 11/13/24 11/14/24 11/14/24 22:59 06:59 14:59 Intake Total 240 / 850 670 / 1520 730 / 730 Output Total 300 / 1500 2 / 1502 Balance -60 / -650 668 / 18 730 / 730 Weight last 48 hrs Weight 98.883 kg Weight 98.883 kg Weight 100.153 kg Weight 86.183 kg Physical Exam 2 Const: COMMON NORMALS: no acute distress and patient oriented x3 Resp: COMMON NORMALS: normal respiratory effort, No retractions and No use of accessory muscles AUSCULTATION: crackles and wheezes Cardio: COMMON NORMALS: regular rate, regular rhythm, S1 normal heart sound present and S2 normal heart sound present RATE: regular rate RHYTHM: r egular rhythm HEART SOUNDS: S1 normal heart sound present and S2 normal heart sound present GI: COMMON NORMALS: Normal to inspection, nondistended, normoactive bowel sounds present and non-tender Extremity: COMMON NORMALS: no pedal edema Neuro: COMMON NORMALS: patient oriented x3 Psych: COMMON NORMALS: mental status grossly normal Data 11/14/24 03:14 11/14/24 03:14 Micro: Microbiology 11/12/24 16:23 Urine Culture - Final Urine,Clean Catch Escherichia coli 11/12/24 15:24 Blood Culture - Preliminary Blood NEGATIVE TO DATE 11/12/24 15:19 Blood Culture - Preliminary Blood NEGATIVE TO DATE A&P Assessment and plan 1. Pre-syncope: 2. Pneumonia: 3. Acute hypoxic respiratory failure: Plan: Acute hypoxic respiratory failure - Secondary to pneumonia - Does report vaping - Does report history of blood clots - Plan - CT angiogram of the chest no pulmonary embolism - Rocephin - Azithromycin - DuoNeb - Budesonide - Monitor respiratory status closely - Patient is DNR/DNI, confirmed with patient multiple times she does not want to be resuscitated or intubation - Lovenox for DVT prophylaxis Pre-syncope - Telemetry monitoring - Cardiac echo CONCLUSIONS LV systolic function is normal with EF of 60-65% Grade 1 diastolic dysfunction Moderate to severe left ventricular hypertrophy. Mild mitral regurgitation. Mild to moderate aortic regurgitation. Moderate to severe aortic stenosis Mild tricuspid regurgitation. - Carotid artery ultrasound CONCLUSIONS Right ICA stenosis <50%. Mild atheromatous plaque right carotid bulb/ICA. Left ICA stenosis <50%. Mild atheromatous plaque left carotid bulb/ICA. Normal antegrade Doppler flow noted in the right vertebral artery. Normal antegrade Doppler flow noted in the left vertebral artery. PDMP PDMP Reviewed: Not Reviewed Attestations 2 Medical Necessity Statement*: Patient requires hospitalization for pneumonia Diagnoses Pre-syncope R55 Pneumonia J18.9 Acute hypoxic respiratory failure J96.01
[2024-11-14] MEDS: HYDROcodone-acetaminophen 5-325 mg Tablet 1 TAB PO (20:15)
[2024-11-15] VITALS (12 sets, daily range): BP systolic 120–152; BP diastolic 78–88; PULSE 70–85; RESP 16–20; TEMP 36.4–36.9; O2SAT 94–98
[2024-11-15 04:00] LABS: Hematocrit 31.8 % (36-47); Hemoglobin 10.50 g/dL (11.27-16.99); Mean Corpuscular HGB Conc 33.0 g/dL (30-55); Mean Corpuscular Hemoglobin 29.3 pg (27-33); Mean Corpuscular Volume 88.8 fl (85-98); Nucleated Red Blood Cells % 0 %; Platelet Count 224 10^3/cmm (157-399); Red Blood Count 3.58 10^6/uL (3.85-5.65); White Blood Count 5.08 10^3/uL (3.29-11.43)
[2024-11-15 04:32] LABS: Anion Gap 10.1 (5-19); Blood Urea Nitrogen 8 mg/dL (8-23); Calcium 8.7 mg/dL (8.5-10.5); Carbon Dioxide 31 mmol/L (22-29); Chloride 108 mmol/L (98-107); Creatinine Clr Calc Pharmacy 135.3983; Glucose 107 mg/dL (65-115); Osmolality Calculated 299 mOsm/kg (285-295); Potassium 4.1 mmol/L (3.5-5.1); Sodium 145 mmol/L (136-145)
[2024-11-15 08:52] LABS: Alanine Aminotransferase 7 U/L (0-33); Albumin Level 3.3 g/dL (3.5-5.2); Alkaline Phosphatase 58 U/L (35-105); Aspartate Amino Transferase 7 U/L (0-32); Globulin 3.0 g/dL (1.3-4.6); Total Protein 6.3 g/dL (6.6-8.7)
[2024-11-15] MEDS: cefTRIAXone 1,000 mg SDV 1000 MG IVP (09:08)
[2024-11-15] MEDS: methylPREDNISolone sod succ 125 mg/2 mL INJ IVP (11:11)
--- NOTE | 2024-11-15 11:21 | USR_ITS ---
PROCEDURE INFORMATION: Exam: US Abdomen, Limited; Right Upper Quadrant Exam date and time: 11/15/2024 6:49 AM Age: 59 years old Clinical indication: Abnormal findings; Abnormal radiologic finding of the abdomen; Radiologic exam and body structure: CT lab; Prior surgery; Surgery date: 6+ months; Surgery type: Gb removed- unsure of dates; Additional info: Left hepatic lobe, npo at midnight to scan in am. Nurse notified. CR TECHNIQUE: Imaging protocol: Real time ultrasound of the abdomen with image documentation. Limited exam focused on the right upper quadrant. COMPARISON: CT angio chest PE protcl [id number] 11/13/2024 4:46 AM FINDINGS: Liver: Liver appears mildly echogenic, echodense with limited penetration, Limited visualization through delivered, possible mild diffuse fatty liver. 1.9 x 1.3 x 1.5 cm hypoechoic structure demonstrated within the left liver lobe suggesting complex septated cyst or cluster of small cysts grouped together corresponding to the hypodense lesion seen on CT scan 11/13/2024. Evidence of another tiny cyst measured at about 0.7 cm along anterior inferior liver. Liver measured at 17.3 cm length. Gallbladder: Information provided indicates gallbladder surgically removed. Biliary ducts: Common duct appears dilated, measured at about 9 mm across, possibly related to prior cholecystectomy. Pancreas: Pancreas not well visualized/demonstrated. Right kidney: Right kidney measured at 9.0 cm length. No dilated renal collecting system and no perirenal fluid demonstrated of visualized portions right kidney. Aorta: Abdominal aorta not well visualized. Visualized portions abdominal aorta unremarkable. Inferior vena cava: Visualized portions inferior vena cava unremarkable. Portal venous: Portal venous flow demonstrated as antegrade. Intraperitoneal space: No obvious free fluid demonstrated visualized portions right upper quadrant abdomen. US/US liver [id number] IMPRESSION: Possible mild diffuse fatty liver. 1.9 x 1.3 x 1.5 cm hypoechoic structure demonstrated within the left liver lobe suggesting complex septated cyst or cluster of small cysts grouped together corresponding to the hypodense lesion seen on CT scan 11/13/2024. Evidence of another tiny cyst measured at about 0.7 cm along anterior inferior liver.
--- NOTE | 2024-11-15 15:11 | P.PN_ITS ---
Subjective 2 Subjective: Patient was seen this morning, currently alert oriented x 3, following all commands, continues to complain of shortness of breath and wheezing this morning Vitals/I&O/Wt Last Vital Signs Temp 97.7 F 11/15/24 11:28 Pulse 83 11/15/24 13:35 Resp 16 11/15/24 13:26 BP 150/85 11/15/24 11:28 Pulse Ox 98 11/15/24 13:26 O2 Del Method Nasal Cannula 11/15/24 13:26 O2 Flow Rate 1 11/15/24 13:26 11/15/24 11/15/24 11/15/24 06:59 14:59 22:59 Intake Total 490 / 490 Output Total 200 / 200 Balance -200 / 870 490 / 490 Weight last 48 hrs Weight 99.422 kg Weight 98.883 kg Physical Exam 2 Const: COMMON NORMALS: no acute distress and patient oriented x3 Resp: COMMON NORMALS: normal respiratory effort, No retractions and No use of accessory muscles AUSCULTATION: crackles and wheezes Cardio: COMMON NORMALS: regular rate, regular rhythm, S1 normal heart sound present and S2 normal heart sound present RATE: regular rate RHYTHM: r egular rhythm HEART SOUNDS: S1 normal heart sound present and S2 normal heart sound present GI: COMMON NORMALS: Normal to inspection, nondistended, normoactive bowel sounds present, Soft to palpation and non-tender PALPATION: Yes Soft to palpation Extremity: COMMON NORMALS: no pedal edema Neuro: COMMON NORMALS: patient oriented x3 Psych: COMMON NORMALS: mental status grossly normal Data 11/15/24 03:17 11/15/24 03:17 Micro: Microbiology 11/12/24 16:23 Urine Culture - Final Urine,Clean Catch Escherichia coli A&P Assessment and plan 1. Pre-syncope: 2. Pneumonia: 3. Acute hypoxic respiratory failure: Plan: Acute hypoxic respiratory failure - Secondary to pneumonia - Does report vaping - Does report history of blood clots CT angio CT/CT angio chest PE protcl [id number] IMPRESSION: 1. Moderate nonspecific central and right hilar adenopathy. 2. Bands of atelectasis or infiltrate on the right. 3. Small right lower lobe pulmonary nodules. 4. Small low-attenuation structure in the left hepatic lobe. 5. For patients at low risk (minimal or absent history of smoking and of other known risk factors), no routine follow-up is indicated. For patients at high risk (history of smoking or of other known risk factors), consider optional CT Chest at 12 months. (Reference: Julia) - Plan - Rocephin - Azithromycin -Will start IV steroids - DuoNeb - Budesonide - Monitor respiratory status closely - Patient is DNR/DNI, confirmed with patient multiple times she does not want to be resuscitated or intubation - Lovenox for DVT prophylaxis Pre-syncope - Telemetry monitoring - Cardiac echo CONCLUSIONS LV systolic function is normal with EF of 60-65% Grade 1 diastolic dysfunction Moderate to severe left ventricular hypertrophy. Mild mitral regurgitation. Mild to moderate aortic regurgitation. Moderate to severe aortic stenosis Mild tricuspid regurgitation. - Carotid artery ultrasound CONCLUSIONS Right ICA stenosis <50%. Mild atheromatous plaque right carotid bulb/ICA. Left ICA stenosis <50%. Mild atheromatous plaque left carotid bulb/ICA. Normal antegrade Doppler flow noted in the right vertebral artery. Normal antegrade Doppler flow noted in the left vertebral artery. Plan for today IV steroids, IV antibiotics PDMP PDMP Reviewed: Not Reviewed Attestations 2 Medical Necessity Statement*: Patient requires hospitalization for acute hypoxic respiratory failure secondary pneumonia Diagnoses Pre-syncope R55 Pneumonia J18.9 Acute hypoxic respiratory failure J96.01
[2024-11-15] MEDS: HYDROcodone-acetaminophen 5-325 mg Tablet 1 TAB PO (21:04)
[2024-11-16] VITALS (9 sets, daily range): BP systolic 129–157; BP diastolic 74–92; PULSE 63–80; RESP 16–20; TEMP 36.4–36.9; O2SAT 91–96
[2024-11-16 05:59] LABS: Anion Gap 14.3 (5-19); Blood Urea Nitrogen 10 mg/dL (8-23); Calcium 9.1 mg/dL (8.5-10.5); Carbon Dioxide 27 mmol/L (22-29); Chloride 105 mmol/L (98-107); Creatinine Clr Calc Pharmacy 135.3983; Glucose 143 mg/dL (65-115); Osmolality Calculated 296 mOsm/kg (285-295); Potassium 4.3 mmol/L (3.5-5.1); Sodium 142 mmol/L (136-145)
[2024-11-16 06:23] LABS: Hematocrit 32.0 % (36-47); Hemoglobin 10.60 g/dL (11.27-16.99); Mean Corpuscular HGB Conc 33.1 g/dL (30-55); Mean Corpuscular Hemoglobin 29.1 pg (27-33); Mean Corpuscular Volume 87.9 fl (85-98); Nucleated Red Blood Cells % 0 %; Platelet Count 245 10^3/cmm (157-399); Red Blood Count 3.64 10^6/uL (3.85-5.65); White Blood Count 8.03 10^3/uL (3.29-11.43)
[2024-11-16] MEDS: cefTRIAXone 1,000 mg SDV 1000 MG IVP (08:41)
--- NOTE | 2024-11-16 09:56 | P.DS_ITS ---
Discharge Providers Date of Admission: 11/12/24 18:05 Date of Discharge: November 16, 2024 Attending Provider at Admission: Jorge Luis Morris MD Attending Provider at Discharge: Jorge Luis Morris MD Primary Care Provider: Valentin Vargas MD Diagnoses at Discharge Discharge Diagnosis 1. Pre-syncope: 2. Pneumonia: 3. Acute hypoxic respiratory failure: Reason for Visit Reason for Visit: rapid - dizzy with headache Hospital Course Hospital Course Dania Madrigal is a 59 year old female with a past medical history of hypothyroidism, generalized anxiety disorder, insomnia, who presents [facility] due to dizziness, fatigue, shortness of breath, cough, fevers. Currently patient is alert oriented x 3, following all commands, she tells me for the last few days she has been experiencing fevers, chills, cough, wheezing, shortness of breath, she was in the cafeteria at [facility], when she started to feel lightheaded and dizzy, she never actually passed out she tells me, but felt like she was going to pass out, she had a rapid response called, she was brought to the emergency room, the emergency room she was diagnosed with pneumonia, requiring 3 L, she has a low-grade fever, does report a history of blood clots. She tells me that when she was in her 40s, she had neck surgery, which resulted in spinal abscess, she was in the ICU for a prolonged period of time, on the ventilator, she was paralyzed at some point, but she has since then has made a significant recovery, because of this she wants to be a DNR/DNI, she does not want to have aggressive interventions Patient was admitted to [facility] for acute hypoxic respiratory failure secondary pneumonia, vape induced lung injury, CT angiogram of the chest negative for pulm embolism managed with IV antibiotics, due to persistent wheezing will started on IV steroids, overall clinically improved. Patient was advised to stop vaping, extensive discussion about the morbidity mortality associate with vaping, she voiced understanding, all questions answered, will have her follow-up with primary care provider as outpatient. Will discharge on oral antibiotics, steroids, albuterol, Advair. Patient was found to have small right lower lobe pulmonary nodules, in addition she had central and right hilar adenopathy, will have her follow-up with pulmonary as outpatient. For her presyncope Pre-syncope - Telemetry monitoring - Cardiac echo CONCLUSIONS LV systolic function is normal with EF of 60-65% Grade 1 diastolic dysfunction Moderate to severe left ventricular hypertrophy. Mild mitral regurgitation. Mild to moderate aortic regurgitation. Moderate to severe aortic stenosis Mild tricuspid regurgitation. - Carotid artery ultrasound CONCLUSIONS Right ICA stenosis <50%. Mild atheromatous plaque right carotid bulb/ICA. Left ICA stenosis <50%. Mild atheromatous plaque left carotid bulb/ICA. Normal antegrade Doppler flow noted in the right vertebral artery. Normal antegrade Doppler flow noted in the left vertebral artery. Discharged with close follow-up with primary care provider as outpatient Transaminitis US/US liver [id number] IMPRESSION: Possible mild diffuse fatty liver. 1.9 x 1.3 x 1.5 cm hypoechoic structure demonstrated within the left liver lobe suggesting complex septated cyst or cluster of small cysts grouped together corresponding to the hypodense lesion seen on CT scan 11/13/2024. Evidence of another tiny cyst measured at about 0.7 cm along anterior inferior liver. - Liver ultrasound as above - Will have him follow-up with GI as outpatient Physical Exam Const: COMMON NORMALS: no acute distress and patient oriented x3 Resp: COMMON NORMALS: normal respiratory effort, No retractions, No use of accessory muscles and clear to auscultation bilaterally AUSCULTATION: clear to auscultation bilaterally Cardio: COMMON NORMALS: regular rate, regular rhythm, S1 normal heart sound present and S2 normal heart sound present RATE: regular rate RHYTHM: regular rhythm HEART SOUNDS: S1 normal heart sound present and S2 normal heart sound present GI: COMMON NORMALS: Normal to inspection, nondistended, normoactive bowel sounds present and non-tender Extremity: COMMON NORMALS: no pedal edema Neuro: COMMON NORMALS: patient oriented x3 Psych: COMMON NORMALS: mental status grossly normal Discharge Data Studies Completed and Pending Completed Studies During Hospitalization Category Date Time Status CT angio chest PE protcl [id number] Routine Cat Scan 11/13/24 07:00 Completed XR chest 1V portable [id number] Stat Exams 11/12/24 14:53 Completed CV carotid duplex BI* [id number] Stat Ultrasound 11/12/24 18:11 Completed CV. echo complete* [id number] Stat Ultrasound 11/12/24 18:11 Completed [place] liver [id number] Routine Ultrasound 11/15/24 11:21 Completed Pending at discharge Category Date Time Status Blood Culture Stat Lab 11/12/24 15:24 Results Sputum Culture and Gram Stain Stat Lab 11/12/24 18:18 Uncollected Radiology Impressions Chest X-Ray 11/12/24 14:53 IMPRESSION: 1. Diffuse streaky opacities in the right lower lobe concerning for pneumonia. 2. Stable mild cardiomegaly. Chest CTA 11/13/24 07:00 IMPRESSION: 1. Moderate nonspecific central and right hilar adenopathy. 2. Bands of atelectasis or infiltrate on the right. 3. Small right lower lobe pulmonary nodules. 4. Small low-attenuation structure in the left hepatic lobe. 5. For patients at low risk (minimal or absent history of smoking and of other known risk factors), no routine follow-up is indicated. For patients at high risk (history of smoking or of other known risk factors), consider optional CT Chest at 12 months. (Reference: Julia) COMMENTS: The presence of pulmonary emphysema on CT is an independent risk factor for lung cancer. In the absence of a history or active diagnosis of lung cancer, it is recommended that this patient with emphysema be evaluated for enrollment in a low dose CT lung cancer screening program. REFERENCES: Julia H, et al. Guidelines for Management of Incidental Pulmonary Nodules Detected on CT Images: From the Fleischner Society 2017. Radiology. 2017;284(1):228-243. Liver Ultrasound 11/15/24 11:21 IMPRESSION: Possible mild diffuse fatty liver. 1.9 x 1.3 x 1.5 cm hypoechoic structure demonstrated within the left liver lobe suggesting complex septated cyst or cluster of small cysts grouped together corresponding to the hypodense lesion seen on CT scan 11/13/2024. Evidence of another tiny cyst measured at about 0.7 cm along anterior inferior liver. Laboratory Results WBC 8.03 10^3/uL (3.29-11.43) 11/16/24 06:05 Corrected WBC Cancelled 11/16/24 05:14 RBC 3.64 10^6/uL (3.85-5.65) L 11/16/24 06:05 Hgb 10.60 g/dL (11.27-16.99) L 11/16/24 06:05 Hct 32.0 % (36-47) L 11/16/24 06:05 MCV 87.9 fl (85-98) 11/16/24 06:05 MCH 29.1 pg (27-33) 11/16/24 06:05 MCHC 33.1 g/dL (30-55) 11/16/24 06:05 RDW 13.2 % (12.1-15.1) 11/16/24 06:05 Plt Count 245 10^3/cmm (157-399) 11/16/24 06:05 MPV 9.3 fL (7.4-10.4) 11/16/24 06:05 Gran % Cancelled 11/16/24 05:14 Neut % (Auto) 70.2 % 11/16/24 06:05 Lymph % (Auto) 21.5 % 11/16/24 06:05 [place] % (Auto) 7.6 % 11/16/24 06:05 Eos % (Auto) 0.0 % 11/16/24 06:05 Baso % (Auto) 0.1 % 11/16/24 06:05 Neut # (Auto) 5.63 10^3/uL (1.8-7.7) 11/16/24 06:05 Lymph # (Auto) 1.7 10^3/uL (0.8-4.8) 11/16/24 06:05 [place] # (Auto) 0.6 10^3/uL (0.2-0.9) 11/16/24 06:05 Eos # (Auto) 0.0 10^3/uL (0.0-0.8) 11/16/24 06:05 Baso # (Auto) 0.0 10^3/uL (0.0-0.1) 11/16/24 06:05 Absolute Gran (auto) Cancelled 11/16/24 05:14 Nucleated RBC % (auto) 0 % 11/16/24 06:05 Nucleated RBCs # 0.0 /100WBC 11/16/24 06:05 D-Dimer 0.44 ug/mLFEU (0-0.59) 11/13/24 04:18 Sodium 142 mmol/L (136-145) 11/16/24 05:14 Potassium 4.3 mmol/L (3.5-5.1) 11/16/24 05:14 Chloride 105 mmol/L (98-107) 11/16/24 05:14 Carbon Dioxide 27 mmol/L (22-29) 11/16/24 05:14 Anion Gap 14.3 (5-19) 11/16/24 05:14 BUN 10 mg/dL (8-23) 11/16/24 05:14 Creatinine 0.5 mg/dL (0.5-0.9) 11/16/24 05:14 GFR Calculation 125.4 mL/min (90-130) 11/16/24 05:14 Glucose 143 mg/dL (65-115) H 11/16/24 05:14 Calculated Osmolality 296 mOsm/kg (285-295) H 11/16/24 05:14 Lactic Acid 0.9 mmol/L (0.5-2.2) 11/12/24 15:19 Calcium 9.1 mg/dL (8.5-10.5) 11/16/24 05:14 Total Bilirubin 0.2 mg/dL (0.15-1.2) 11/15/24 03:17 Direct Bilirubin 0.08 mg/dL (0.00-0.30) 11/15/24 03:17 AST 7 U/L (0-32) 11/15/24 03:17 ALT 7 U/L (0-33) 11/15/24 03:17 Alkaline Phosphatase 58 U/L (35-105) 11/15/24 03:17 Troponin T Baseline 12 ng/L (0-10) H 11/12/24 15:45 Troponin T 120 Minute 12.11 ng/L (0-10) H 11/12/24 17:35 Delta Troponin T 0.11 ABS# (0-10) 11/12/24 17:35 Troponin T Hi Sens 6Hr 11.76 ng/L (0-10) H 11/12/24 21:44 Troponin T Hi Sens 6Hr Delta -0.24 ng/L (0-12) L 11/12/24 21:44 C-Reactive Protein 133.1 mg/L (0.0-4.9) H 11/12/24 17:35 NT-Pro-B Natriuret Pep 210 pg/mL (0-125) H 11/13/24 03:05 Total Protein 6.3 g/dL (6.6-8.7) L 11/15/24 03:17 Albumin 3.3 g/dL (3.5-5.2) L 11/15/24 03:17 Globulin 3.0 g/dL (1.3-4.6) 11/15/24 03:17 Procalcitonin 2.11 ng/mL (0-0.5) H 11/12/24 17:35 TSH 1.14 uIU/mL (0.27-4.20) 11/12/24 17:35 HCG, Qual Negative (Negative) 11/12/24 16:23 Urine Color Yellow (Yellow) 11/12/24 16:23 Urine Appearance Cloudy (CLEAR) A 11/12/24 16:23 Urine pH 6.0 (5-7) 11/12/24 16:23 Ur Specific [place] 1.021 (1.005-1.030) 11/12/24 16:23 Urine Protein 1+ (Negative) A 11/12/24 16:23 Urine Glucose (UA) Negative (Normal) 11/12/24 16:23 Urine Ketones Trace (Negative) 11/12/24 16:23 Urine Blood Negative (Negative) 11/12/24 16:23 Urine Nitrate Negative (Negative) 11/12/24 16:23 Urine Bilirubin Negative (Negative) 11/12/24 16:23 Urine Urobilinogen 1.0 mg/dL (Negative) 11/12/24 16:23 Ur Leukocyte Esterase 1+ (Negative) A 11/12/24 16:23 Urine RBC 0-2 /hpf (0-2) 11/12/24 16:23 Urine WBC 11-20 /hpf (0-5) H 11/12/24 16:23 Ur Squamous Epith Cells 6-10 /hpf (0-5) 11/12/24 16:23 Amorphous Sediment Not Reportable 11/12/24 16:23 Urine Bacteria 4+ /hpf (NONE) H 11/12/24 16:23 Hyaline Casts 23.57 /lpf 11/12/24 16:23 Salicylates < 0.3 mg/dL (3-10) L 11/12/24 15:45 Urine Opiates Screen Negative ng/mL (Negative) 11/12/24 16:23 Acetaminophen < 5.0 ug/mL (10-30) L 11/12/24 15:45 Ur Barbiturates Screen Positive ng/mL (Negative) H 11/12/24 16:23 Ur Phencyclidine Scrn Negative ng/mL (Negative) 11/12/24 16:23 Ur Amphetamines Screen Negative ng/mL (Negative) 11/12/24 16:23 U Benzodiazepines Scrn Negative ng/mL (Negative) 11/12/24 16:23 Urine Cocaine Screen Negative ng/mL (Negative) 11/12/24 16:23 U Marijuana (THC) Screen Negative ng/mL (Negative) 11/12/24 16:23 Ethyl Alcohol < 10 mg/dL (0-10) 11/12/24 15:45 Influenza A (PCR) Negative (Negative) 11/12/24 15:12 Influenza Type B (PCR) Negative (Negative) 11/12/24 15:12 RSV (PCR) Negative (Negative) 11/12/24 15:12 SARS-CoV-2 (PCR) Negative (Negative) 11/12/24 15:12 Vitals Last Vital Signs Temp 97.5 F L 11/16/24 08:22 Pulse 63 11/16/24 08:22 Resp 17 11/16/24 08:22 BP 129/79 11/16/24 08:22 Pulse Ox 94 11/16/24 09:42 O2 Del Method Room Air 11/16/24 09:05 O2 Flow Rate 1 11/16/24 07:52 Discharge Plan Discharge Patient Disposition: Home Condition: Stable Prescriptions: New prednisone 20 mg Tablet 40 mg PO DAILY 5 Days Qty: 10 0RF doxycycline hyclate 100 mg tablet 100 mg PO BID 5 Days Qty: 10 0RF fluticasone propion-salmeterol [Advair Diskus] 100-50 mcg/dose blister with device 1 inh inhalation DAILY Qty: 60 0RF albuterol sulfate [Ventolin HFA] 90 mcg/actuation HFA aerosol inhaler 1 inh inhalation Q6H PRN (Reason: shortness of breath or wheezing) Qty: 8.5 0RF Continued ondansetron 4 mg tablet,disintegrating 4 mg PO Q6H PRN (Reason: nausea and vomiting) Qty: 12 0RF Rx Instructions: 340b please acetaminophen [Tylenol Arthritis Pain] 650 mg tablet extended release 650 mg PO Q12H PRN (Reason: pain) Qty: 60 4RF fluticasone propionate [Flonase Allergy Relief] 50 mcg/actuation spray,suspension 1 spray intranasal BID PRN (Reason: nasal congestion) Qty: 16 0RF Rx Instructions: administer into each nostril trazodone 100 mg tablet 400 mg PO .HS PRN (Reason: insomnia) Qty: 120 2RF hydroxyzine HCl 50 mg tablet 100 mg PO BID PRN (Reason: insomnia) Qty: 60 2RF fluoxetine 40 mg capsule 40 mg PO DAILY Qty: 30 2RF hydrocodone-acetaminophen 5-325 mg tablet 1 tab PO Q6H PRN (Reason: pain) 21 Days Qty: 30 0RF tramadol 50 mg tablet 50 mg PO Q8H PRN (Reason: neck pain) 30 Days Qty: 90 0RF pregabalin [Lyrica] 100 mg capsule 100 mg PO BID Qty: 60 0RF Changed clonazepam 0.5 mg tablet 0.5 mg PO TID PRN (Reason: anxiety) Qty: 90 1RF gabapentin 600 mg tablet 300 mg PO TID 30 Days Qty: 45 1RF Discontinued gabapentin 800 mg tablet 800 mg PO TID Discharge Order = DC NOW: Discharge Order (Routine); Ordered 11/16/24 Ordered By: Jorge Luis Morris Other Ambulatory Orders: DME: Oxygen (Order) Location: None Selected Ordered By: Jorge Luis Morris Referrals: Veronika Landon MD [Physician, Pulmonology] - 7-10 days Brandon Lozano MD [Referring, Internal Medicine] - 1 month Referral Note: liver cysts Valentin Vargas MD [Primary Care Provider, [facility]] Discharge Diet: Cardiac Discharge Activity: Resume usual activity Patient Instructions: Opioid Safety, Patient Portal & Erasmo Instructions Activity Restrictions/Additional Instructions: - Please discontinue vaping - Please follow-up with your primary care provider about weaning yourself off gabapentin - I have decreased your gabapentin to 300 mg 3 times daily - Please take prednisone burst as prescribed - Please take doxycycline as prescribed - Albuterol as needed - Advair daily - If any fevers, chills, cough please go to emergency room Discharge Attestations Time Spent in Discharge Care*: greater than 30 min Quality Metrics Clinical Quality Measures [ No reported AMI, CVA or VTE this stay] Coding Level of Care Code 65454 Total time (in minutes) for Discharge: 45 Diagnoses Pre-syncope R55 Pneumonia J18.9 Acute hypoxic respiratory failure J96.01
--- NOTE | 2024-11-16 11:39 | PC.SOCIAL ---
IMM Updated Updated pt on IMM. No questions voiced. Provided pt a copy. Initialed, dated, & timed a copy & placed in chart.
== END 2024-11-16 11:45 | disposition home or self-care (01) | DRG 193 ==
LOC: ER 17:20 → MEDSURG 18:06
PROVIDERS: Admitting Provider Family Medicine; Emergency Provider Emergency Medicine; PCP Family Medicine; Visit Provider Family Medicine
DX: J18.9 Pneumonia, unspecified organism (principal); J96.01 Acute respiratory failure with hypoxia; U07.0 Vaping-related disorder; J68.9 Unspecified respiratory condition due to chemicals, gases, fumes and vapors; R55 Syncope and collapse; F41.1 Generalized anxiety disorder; G47.00 Insomnia, unspecified
CPT/HCPCS: 36415; 71045; 71275; 76705; 80048; 80053; 80076; 80306; 80307; 81001; 81025; 83605; 83880; 84145; 84443; 84484; 85025; 85378; 86140; 87040; 87077; 87086; 87186; 87637; 93005; 93306; 93880; 94640; 94664; 94760; 96365; 96372; 96375; 99285; J0131; J0456; J0696; J1650; J1938; J2919; J3490; J7030; J7050; J7512; J7626; J9999; Q0144